=== PATIENT | female | born 1930 | race Two or more races ===

== ENCOUNTER 2018-11-19 21:00 | Inpatient (IN) | payer OTHER ==
[~2018-11-19] VITALS: Ht 152.4 cm; Wt 30.5 kg
--- NOTE | 2018-11-19 19:35 | NUR ---
TRANSFER FROM [facility] ARMIN AGUILA direct admit from [facility]. Patient oriented to DEMARCO LINN, primary RN, unit, room, bed, and unit policies regarding patient care and visiting hours. Patient is alert and oriented x4. Patient noted to have facial droop, slurred speech, and left sided weakness. Received patient with IV 20g to right forearm. Patient denies pain, headache, or shortness of breath at this time. Patient encouraged to call as needed. All questions and concerns addressed, patient verbalized understanding. Bed is locked in lowest position, side rails x 2 are up, call light is within reach, bed alarm is on, and guard is noted at the bedside.
[2018-11-19 20:00] VITALS: BP 159/63
--- NOTE | 2018-11-19 21:00 | NUR ---
SPOKE WITH DR. BOWENS RE: ADMISSION ORDERS Spoke with Dr. Bowens regarding patients status and condition. Admission orders received. Orders read back and verified. Will carry out orders as received.
[2018-11-19] MEDS ORDERED: cloNIDine HCL 0.1 MG TAB PO PRN (21:30)
[2018-11-19] MEDS ORDERED: LABETALOL HCL 5 MG/ML ML 20ML VIAL IV PRN (21:30)
[2018-11-19] MEDS ORDERED: DEXTROSE (50%) 50ML SYRG IV PRN (21:45)
[2018-11-19 22:00] VITALS: BP 159/63
--- NOTE | 2018-11-19 22:27 | NUR ---
RECEIVED CALL FROM LAB RE: CRITICAL LAB VALUE This RN received call from lab and was notified of critical lab value of troponin: 2.340. Will inform
--- NOTE | 2018-11-19 22:55 | NUR ---
DR. KWAN MOSELEY RE: CRITICAL LAB VALUE Dr. Kwan moseley regarding critical lab value.
--- NOTE | 2018-11-19 23:03 | NUR ---
SPOKE WITH DR. BOWENS RE: CRITICAL LAB VALUE Notified Dr. Bowens that patients troponin level is 2.340. Per Dr. Bowens, have this RN inform stna Dr. Shala House.
--- NOTE | 2018-11-19 23:14 | NUR ---
SPOKE WITH DR. Qasim ARAMBULA RE: CRITICAL LAB VALUE Informed Dr. aQsim Arambula of patients critical troponin lab value of 2.340. Updated Dr. Qasim Arambula on patients status and plan of care. New orders for Lovenox 40mg subcutaneous now and scheduled Lovenox 40mg subcutaneous daily received. Will carry out orders as received. Addendum: 11/20/18 at 0113 by DEMARCO LINN RN RN Qasim Arambula aware that patient denies chest pain at this time.
[2018-11-19] MEDS ORDERED: ENOXAPARIN SOD 40 MG/0.4 ML SYRINGE SC ONE (23:15)
--- NOTE | 2018-11-19 23:20 | NUR ---
SPOKE WITH PHARMACY RE: MEDICATION ORDER Spoke with pharmacy regarding Lovenox order. Per pharmacist, Lovenox is a weight based medication and clarification for dosage is needed. Will inform Dr. Shala House.
--- NOTE | 2018-11-19 23:32 | NUR ---
SPOKE WITH DR. Qasim ARAMBULA RE: MEDICATION ORDER Spoke with Dr. Arambula and clarified dosage for Lovenox. New orders received from Dr. Qasim Arambula for Lovenox 35mg subcutaneous now and scheduled Lovenox 35mg subcutaneous daily. Order read back and verified. Will carry out orders as received.
[2018-11-19] MEDS ORDERED: ENOXAPARIN SOD 30 MG/0.3 ML SYRINGE SC ONE (23:45)
[2018-11-19] MEDS: SOD CHL 0.45% 1,000 ML IV SCH (23:57)
[2018-11-20] VITALS (7 sets, daily range): BP systolic 141–160; BP diastolic 43–74
[2018-11-20] MEDS: ACCU-CHEK COMFORT CURVE STRIP VI SCH ×5 (00:02→23:27)
[2018-11-20] MEDS ORDERED: LOSA-39 PO ×2 (00:55)
[2018-11-20] MEDS ORDERED: METF-371 PO (00:55)
[2018-11-20] MEDS ORDERED: ASPI-498 PO (00:55)
[2018-11-20] MEDS ORDERED: HYDR10TA26 PO (00:55)
--- NOTE | 2018-11-20 05:30 | NUR ---
ELEVATED TEMPERATURE Patients temperature was found to be 100.4. Patient denies chills at this time. Cooling measures are in place. Will continue to monitor.
[2018-11-20] MEDS: InsuLIN REG 1unit/0.01ml Soln (100units/ml) SC SCH ×5 (06:00→23:26)
--- NOTE | 2018-11-20 06:20 | NUR ---
REASSESSMENT: TEMPERATURE Patients temperature trending down. Current temperature is 99.4. Patient denies chills at this time. Cooling measures continue to be in place. Patient is laying in bed with even and unlabored respirations. Bed is locked in lowest position, side rails x 2 are up, call light is within reach, bed alarm is on, and guard is noted at the bedside.
--- NOTE | 2018-11-20 07:28 | NUR ---
CLOSING SHIFT NOTE Patient is laying in bed with even and unlabored respirations. No signs/symptoms of distress or shortness of breath noted at this time. Patient care endorsed to Tasia GREENBERG.
--- NOTE | 2018-11-20 08:00 | NUR ---
md chow rounded on pt informed md of new troponin level trending downward
[2018-11-20] MEDS ORDERED: VANCOMYCIN PER PHARMACY 0 MG IV SCH (08:30)
[2018-11-20 08:51] LABS: Albumin 3.4 g/dL (3.4-5.0); Calcium 8.7 mg/dL (8.5-10.1); Potassium 3.9 mmol/L (3.5-5.1)
[2018-11-20 08:54] LABS: BUN/Creatinine Ratio 16.5; Bilirubin, Total 0.9 mg/dL (0.2-1.0); Total Protein 7.5 g/dL (6.4-8.2)
[2018-11-20] MEDS ORDERED: ENOXAPARIN SOD 40 MG/0.4 ML SYRINGE SC SCH (10:00)
[2018-11-20] MEDS ORDERED: VANCOMYCIN 500 MG in D5W 5% 100 ML IV ONE ×4 (10:00)
[2018-11-20] MEDS: PANTOPRAZOLE 40 MG TAB PO SCH (10:35)
[2018-11-20] MEDS: METOPROLOL SUCCINATE XL 50 MG TAB PO SCH (10:35)
[2018-11-20] MEDS: CLOPIDOGREL BISULFATE 75 MG TAB PO SCH (10:36)
[2018-11-20] MEDS: ASPirin 81 mg TAB PO SCH (10:36)
[2018-11-20] MEDS: ENOXAPARIN SOD 30 MG/0.3 ML SYRINGE SC SCH (10:36)
[2018-11-20] MEDS: LOSARTAN POTASSIUM 50 MG TAB PO SCH (10:37)
[2018-11-20] MEDS: hydrALAZINE HCL 25 MG TAB PO SCH ×3 (10:39→21:21)
[2018-11-20] MEDS: SOD CHL 0.45% 1,000 ML IV SCH ×2 (10:40→17:07)
--- NOTE | 2018-11-20 17:16 | NUR ---
SWALLOW EVALUATED. PATIENT ABLE TO TOLERATE PUREE DIET TEXTURE WITH NECTAR THICKENED LIQUIDS WITH NO OVERT SIGNS OR SYMPTOMS OF ASPIRATION. PATIENT COUGHED ON THIN LIQUIDS. PROFOUND WEAKNESS RIGHT SIDE. NURSING NOTIFIED.
--- NOTE | 2018-11-20 19:58 | NUR ---
Dr. Mcgee at patient's bedside. Patient had difficulty speaking. New orders received for NPO including meds and swallow reevaluation from . All orders read back, noted and carried out. Will continue to monitor.
[2018-11-20] MEDS: LABETALOL HCL 5 MG/ML ML 20ML VIAL IV PRN (22:15)
--- NOTE | 2018-11-20 23:36 | NUR ---
Dr. House at the nurses station. Update given. No new orders received at this time. Will continue to monitor.
--- NOTE | 2018-11-21 00:15 | NUR ---
Assisted pt with bedpan. Pt with moderate amount of clear yellow urine with no foul odor. Good perineal care provided. Will continue to monitor.
[2018-11-21] MEDS: SOD CHL 0.45% 1,000 ML IV SCH ×3 (03:50→23:22)
[2018-11-21 05:00] VITALS: BP 160/72
--- NOTE | 2018-11-21 05:09 | NUR ---
Received call from rehabilitation technician, patient with run of Afib at 62 not sustaining and went back to sinus rhythm. Assessed patient, no complaint of chest pain or any discomfort. EKG done placed in chart. Will endorse to am shift nurse to info MD in the am.
[2018-11-21] MEDS: InsuLIN REG 1unit/0.01ml Soln (100units/ml) SC SCH ×4 (06:00→23:21)
[2018-11-21] MEDS: hydrALAZINE HCL 25 MG TAB PO SCH ×3 (06:00→22:12)
[2018-11-21] MEDS: ACCU-CHEK COMFORT CURVE STRIP VI SCH ×4 (06:07→23:22)
[2018-11-21 06:17] LABS: Albumin 3.3 g/dL (3.4-5.0); Calcium 8.3 mg/dL (8.5-10.1)
[2018-11-21 06:20] LABS: BUN/Creatinine Ratio 22.1
[2018-11-21 06:22] LABS: Bilirubin, Total 0.9 mg/dL (0.2-1.0); Total Protein 6.8 g/dL (6.4-8.2)
--- NOTE | 2018-11-21 06:32 | NUR ---
Assisted pt with bedpan. Pt with moderate amount of clear yellow urine with no foul odor. Good perineal care provided. Will continue to monitor.
[2018-11-21 07:58] LABS: Basophils # (auto) 0 uL; Basophils % (auto) 0.6 % (0.0-2.0); Eosinophils # (auto) 0.1 uL; Eosinophils % (auto) 1.2 % (0.0-7.0); Hemoglobin 11.3 g/dL (12.2-16.2); Lymphocytes % (auto) 15.9 % (10.0-50.0); Mean Corpuscular Hemoglobin 31.5 pg (28.0-32.0); Mean Corpuscular Hgb Conc. 32.3 g/dL (32.0-36.0); Mean Corpuscular Volume 97.5 fL (80.0-100.0); Monocytes # (auto) 0.7 uL; Monocytes % (auto) 12.1 % (0.0-12.0); Neutrophils # (auto) 4.3 uL; Neutrophils % (auto) 70.2 % (37.0-80.0); Platelet Count (auto) 274 10^3/uL (140-450); Red Blood Cells 3.59 10^6/uL (4.0-5.20); White Blood Cell 6.1 10^3/uL (4.4-10.8)
--- NOTE | 2018-11-21 08:00 | NUR ---
PT RESTING IN BED, NO DISTRESS NOTED. GUARDS AT BEDSIDE. PT REPOSITIONED TO RIGHT SIDE. PT REPORTS NO PAIN AT THIS TIME. PT ENCOURAGED TO USE CALL LIGHT PRN, WILL CONTINUE TO MONITOR.
--- NOTE | 2018-11-21 08:58 | NUR ---
RECEIVED IN REPORTS DR MILLER WOULD LIKE TO GO FORWARD WITH MELISSA IF ECHO IS READ BY DR ARAMBULA AND IS NORMAL. ECHO NOT READ YET.
[2018-11-21 09:00] VITALS: BP 165/73
--- NOTE | 2018-11-21 09:06 | NUR ---
CALLED MESH MAN TO REQUEST 0.45 NS. MAXIMO REPORTS TO CALL MATERIALS. CALLED MATERIALS, THEY REPORT THEY ARE OUT OF 0.45 NS.
[2018-11-21] MEDS: ASPirin 81 mg TAB PO SCH (09:31)
[2018-11-21] MEDS: CLOPIDOGREL BISULFATE 75 MG TAB PO SCH (09:31)
[2018-11-21] MEDS: LOSARTAN POTASSIUM 50 MG TAB PO SCH (09:31)
[2018-11-21] MEDS: METOPROLOL SUCCINATE XL 50 MG TAB PO SCH (09:32)
[2018-11-21] MEDS: PANTOPRAZOLE 40 MG TAB PO SCH (09:32)
[2018-11-21] MEDS: ENOXAPARIN SOD 30 MG/0.3 ML SYRINGE SC SCH (09:33)
--- NOTE | 2018-11-21 09:38 | NUR ---
Rechecked pt blood pressure, BP 156/57, HR 58.
--- NOTE | 2018-11-21 10:00 | NUR ---
PT REPOSITIONED TO SUPINE.
--- NOTE | 2018-11-21 11:44 | NUR ---
Pt repositioned to left side.
[2018-11-21] MEDS: VANCOMYCIN 500 MG in D5W 5% 100 ML IV SCH (11:47)
--- NOTE | 2018-11-21 12:22 | NUR ---
PT REPORTS IV IS LEAKING. ASSESSED IV SITE, SITE LEAKING, NO ERYTHEMA OR EDEMA NOTED. IV DC'D, PRESSURE DRESSING APPLIED. ATTEMPTED IV INSERTION TWICE USING STERILE TECHNIQUE, UNSUCCESSFUL. CALLED CHARGE, CHARGE REPORTS SHE WILL START IV.
--- NOTE | 2018-11-21 12:31 | NUR ---
CALLED DR ARAMBULA AND LEFT MESSAGE WITH OFFICE REQUESTING CALL BACK, NEED DIFFERENT PRN BP MED AND NEED ECHO READ.
[2018-11-21 13:00] VITALS: BP 152/75
--- NOTE | 2018-11-21 14:22 | NUR ---
PT REPOSITIONED TO RIGHT SIDE.
--- NOTE | 2018-11-21 16:04 | NUR ---
PATIENT CONTINUES TO HAVE DIFFICULTY WITH SWALLOW DUE TO PROFOUND RIGHT SIDE WEAKNESS. MODIFIED DIET TEXTURES TO PUREE WITH HONEY THICKENED LIQUIDS FOR SAFETY. NURSING NOTIFIED.
--- NOTE | 2018-11-21 16:30 | NUR ---
PT REPOSITIONED TO SUPINE.
[2018-11-21 17:00] VITALS: BP 161/75
--- NOTE | 2018-11-21 18:24 | NUR ---
PT HAS ORDER FOR NPO AND PUREED DIET, CALLED AND LEFT MESSAGE FOR DR MILLER TO CLARIFY DIET. INGOT SUPERVISOR REPORTS SHE WILL PAGE
--- NOTE | 2018-11-21 19:02 | NUR ---
DR MILLER CALLED BACK, READ DIETARY REPORT, REPORTS TO PROCEED WITH PUREED DIET WITH CAUTION.
--- NOTE | 2018-11-21 19:45 | NUR ---
Patient assisted to the bed harman. Pt with moderate amount of clear yellow urine with no foul odor. Provided pt with good perineal care. Will continue to monitor.
--- NOTE | 2018-11-21 20:00 | NUR ---
Patient assisted with her meal. Pt able to consume 25% of her dinner tray. Patient able to tolerate pureed and thickened water. Will continue to monitor.
[2018-11-21 22:21] VITALS: BP 169/69
[2018-11-22 05:12] VITALS: BP 140/49
[2018-11-22] MEDS: InsuLIN REG 1unit/0.01ml Soln (100units/ml) SC SCH ×4 (05:47→23:25)
[2018-11-22] MEDS: ACCU-CHEK COMFORT CURVE STRIP VI SCH ×4 (05:47→23:25)
[2018-11-22] MEDS: hydrALAZINE HCL 25 MG TAB PO SCH ×3 (05:48→21:54)
[2018-11-22 06:02] LABS: Basophils # (auto) 0 uL; Basophils % (auto) 0.3 % (0.0-2.0); Eosinophils # (auto) 0.2 uL; Hematocrit 36.2 % (36.0-46.0); Hemoglobin 11.8 g/dL (12.2-16.2); Lymphocytes % (auto) 13.5 % (10.0-50.0); Mean Corpuscular Hemoglobin 31.6 pg (28.0-32.0); Mean Corpuscular Hgb Conc. 32.7 g/dL (32.0-36.0); Mean Corpuscular Volume 96.8 fL (80.0-100.0); Monocytes # (auto) 0.7 uL; Monocytes % (auto) 9.3 % (0.0-12.0); Neutrophils # (auto) 5.8 uL; Neutrophils % (auto) 74.9 % (37.0-80.0); Platelet Count (auto) 296 10^3/uL (140-450); Red Blood Cells 3.74 10^6/uL (4.0-5.20); Red Cell Distribution Width 14.1 % (11.8-14.3); White Blood Cell 7.7 10^3/uL (4.4-10.8)
[2018-11-22 06:22] LABS: Calcium 8.7 mg/dL (8.5-10.1); Potassium 3.9 mmol/L (3.5-5.1)
--- NOTE | 2018-11-22 06:34 | NUR ---
Received call from labs. Pt's Troponin level 0.591. Patient troponin level trending down. MD aware of previous elevated Troponin levels.
--- NOTE | 2018-11-22 07:44 | NUR ---
PATIENT RESTING IN BED, NO DISTRESS NOTED. PT REPORTS NO PAIN AT THIS TIME, GUARDS AT BEDSIDE. PT REPORTS SHE HAS TO VOID. PT ABLE TO TURN HERSELF TO ASSIST WITH BED RAMIREZ. PT VOIDED MODERATE AMOUNT OF CLEAR YELLOW URINE. PT CLEANED AND POSITIONED TO HER LEFT SIDE. PT REPORTS THIS HURTS HER BACK AND PT REPOSITIONED HERSELF TO SUPINE. PT REPORTS SHE WANTS TO GET UP TO A CHAIR TODAY WITH ASSIST, WILL ASK MD.
--- NOTE | 2018-11-22 07:51 | NUR ---
CALLED DR MATA OFFICE, LEFT MESSAGE WITH OYSTER HARVESTER NOTIFYING MD OF TROPONIN LEVEL OF 0.591. OYSTER HARVESTER REPORTS SHE WILL NOTIFY MD TO CALL BACK.
[2018-11-22 09:00] VITALS: BP 157/65
[2018-11-22] MEDS: SOD CHL 0.45% 1,000 ML IV SCH ×2 (09:12→19:30)
[2018-11-22] MEDS: METOPROLOL SUCCINATE XL 50 MG TAB PO SCH (09:12)
[2018-11-22] MEDS: LOSARTAN POTASSIUM 50 MG TAB PO SCH (09:13)
[2018-11-22] MEDS: ASPirin 81 mg TAB PO SCH (09:13)
[2018-11-22] MEDS: PANTOPRAZOLE 40 MG TAB PO SCH (09:14)
[2018-11-22] MEDS ORDERED: VANCOMYCIN 500 MG in D5W 5% 100 ML IV SCH (10:00)
[2018-11-22] MEDS ORDERED: ENOXAPARIN SOD 30 MG/0.3 ML SYRINGE SC SCH (10:00)
--- NOTE | 2018-11-22 10:36 | NUR ---
CRUSHED MEDS AND GAVE IN APPLE SAUCE, PT TOLERATED AND SWALLOWED WELL. BEARING INSPECTOR REPORTS SHE BATHED PATIENT. WILL CONTINUE TO MONITOR.
--- NOTE | 2018-11-22 11:37 | NUR ---
BS 142, INSULIN HELD. DAIRY INSPECTOR REPORTS PATIENT ATE APPROX 10 PERCENT OF HER BREAKFAST. PT ENCOURAGED TO EAT MORE FOR LUNCH, WILL CONTINUE TO MONITOR.
[2018-11-22 13:00] VITALS: BP 162/66
--- NOTE | 2018-11-22 13:25 | NUR ---
RECEIVED COMMUNICATION ORDER TO START ELIQUIS AND DC LOVENOX ONCE ELIQUIS STARTED. CALLED PHARMACY, PHARMACY REPORTS TO PUT IN ELIQUIS FOR A FIB AND TO DC LOVENOX NOW.
--- NOTE | 2018-11-22 13:29 | NUR ---
PT REPORTED THIS MORNING SHE WANTS TO SIT UP IN CHAIR AND SPEAK WITH DR. DR ARAMBULA CAME TO NURSING STATION, NOTIFIED MD [place] FAITH AND MATT ERICKSON PER ORDER. DR ARAMBULA SAW PATIENT AND EXPLAINED SHE IS TO HAVE A MELISSA ON SATURDAY. PT AWARE. NOTIFIED PT WANTS TO GET OUT OF BED AND SIT IN CHAIR. NEW ORDERS FOR PT EVALUATION.
--- NOTE | 2018-11-22 14:03 | NUR ---
SUTURE GAUGER REPORTS BP 162/ 66, 1400 SCHEDULED APRESOLINE GIVEN. Addendum: 11/22/18 at 1404 by MAYRA GUZMAN RN FLUIDS REDUCED TO 10 MLS/HR.
--- NOTE | 2018-11-22 15:46 | NUR ---
LETI REPORTS PT SLAPPING BED RAIL WITH HAND AND TRYING TO GET OUT OF BED. SHE REPORTS PT WANTS PHYSICAL THERAPY TO COME AND GET HER OUT OF BED. SPOKE WITH PHYSICAL THERAPY, PHYSICAL THERAPY REPORTS THEY SAW PATIENT AND DON'T ADVISE HAVING PATIENT SIT IN CHAIR. WILL CONTINUE TO MONITOR. Addendum: 11/22/18 at 1602 by MAYRA GUZMAN RN BED ALARM ON.
[2018-11-22 17:00] VITALS: BP 178/69
[2018-11-22] MEDS: LABETALOL HCL 5 MG/ML ML 20ML VIAL IV PRN (18:38)
--- NOTE | 2018-11-22 20:00 | NUR ---
Patient in bed alert and oriented. Pt's respiration even and unlabored. Patient upset regarding PT recommendation/ advise. Per patient, she wanted to walk around and not just stay on the bed the whole time. Encouraged patient to reposition self in bed frequently. Guard at bedside. Will continue to monitor.
--- NOTE | 2018-11-22 20:32 | NUR ---
Attended to patient's call light. Pt is asking why her medicines are stuck on the siderails. Reoriented patient that the icons are not medicines but to control the bed. Will continue to monitor.
[2018-11-22 21:31] VITALS: BP 162/64
[2018-11-22] MEDS: APIXABAN 2.5 MG TAB PO SCH (21:54)
--- NOTE | 2018-11-23 00:45 | NUR ---
ASSUMED CARE OF PATIENT AFTER REPORT GIVEN. PATIENT IS RESTING IN BED WITH BREATH EVEN AND UNLABORED. GUARDS AT THE BEDSIDE.
[2018-11-23] MEDS: SOD CHL 0.45% 1,000 ML IV SCH ×2 (05:17→16:00)
[2018-11-23 05:21] VITALS: BP 148/62
[2018-11-23] MEDS: ACCU-CHEK COMFORT CURVE STRIP VI SCH ×3 (05:46→17:39)
[2018-11-23] MEDS: hydrALAZINE HCL 25 MG TAB PO SCH ×3 (05:46→21:37)
[2018-11-23] MEDS: InsuLIN REG 1unit/0.01ml Soln (100units/ml) SC SCH ×3 (05:55→17:39)
--- NOTE | 2018-11-23 08:00 | NUR ---
Opening Shift Note Assumed care of patient, awake and alert. No S/S of distress/SOB or pain. With left sided weakness. Patient has 2 jail guards at the bedside. Instructed on POC and to call for assist PRN, will continue to monitor for changes Q1hr and PRN.
[2018-11-23 09:00] VITALS: BP 160/73
[2018-11-23] MEDS: ASPirin 81 mg TAB PO SCH (10:15)
[2018-11-23] MEDS: METOPROLOL SUCCINATE XL 50 MG TAB PO SCH (10:16)
[2018-11-23] MEDS: LOSARTAN POTASSIUM 50 MG TAB PO SCH (10:16)
[2018-11-23] MEDS: APIXABAN 2.5 MG TAB PO SCH ×2 (10:16→21:38)
[2018-11-23] MEDS: PANTOPRAZOLE 40 MG TAB PO SCH (10:16)
--- NOTE | 2018-11-23 12:15 | NUR ---
IV removal IV in right antecubital infiltrated. IV DC'd with clean sterile technique, catheter fully intact. Pressure dressing applied to site. Patient tolerated well.
--- NOTE | 2018-11-23 12:30 | NUR ---
IV insertion IV access obtained, via clean sterile technique by inserting 20 gauge catheter at right forearm after one attempt. IV secured properly. No trauma to site. Patient tolerated well.
[2018-11-23] MEDS: VANCOMYCIN 500 MG in D5W 5% 100 ML IV SCH (12:35)
[2018-11-23 13:00] VITALS: BP 141/58
--- NOTE | 2018-11-23 13:45 | NUR ---
Qasim Rios at the bedside, patient is advised. Orders received. Patient is for MELISSA on Saturday.
[2018-11-23 17:00] VITALS: BP 164/77
[2018-11-23] MEDS: LABETALOL HCL 5 MG/ML ML 20ML VIAL IV PRN (17:53)
--- NOTE | 2018-11-23 19:30 | NUR ---
Opening Shift Note Assumed care of patient. patient laying in bed awake and alert. No S/S of distress/SOB noted and denies pain. Patient has 2 fpc guards at the bedside. Bed locked and in the lowest position with side rails up x2. Call light left within reach. Instructed on POC and to call for assist PRN, will continue to monitor for changes Q1hr and PRN.
[2018-11-23] MEDS: amLODIPine BESYLATE 5 MG TAB PO SCH (21:38)
[2018-11-23 21:46] VITALS: BP 151/55
[2018-11-24] MEDS: ACCU-CHEK COMFORT CURVE STRIP VI SCH ×4 (01:16→17:41)
[2018-11-24] MEDS: SOD CHL 0.45% 1,000 ML IV SCH ×3 (01:30→22:16)
[2018-11-24] MEDS: hydrALAZINE HCL 25 MG TAB PO SCH ×3 (05:13→22:00)
[2018-11-24 05:21] VITALS: BP 160/65
[2018-11-24] MEDS: InsuLIN REG 1unit/0.01ml Soln (100units/ml) SC SCH ×4 (05:25→17:42)
--- NOTE | 2018-11-24 07:45 | NUR ---
Opening Shift Note Assumed care of patient. Patient laying in bed awake and alert. No S/S of distress/SOB noted and denies pain. Patient has 2 skilled nursing guards at the bedside. Bed locked and in the lowest position with side rails up x2. Call light left within reach. Instructed on POC and to call for assist PRN, will continue to monitor for changes Q1hr and PRN.
[2018-11-24 08:00] VITALS: BP 189/71
--- NOTE | 2018-11-24 08:51 | NUR ---
Blood pressure 189/79 PRN B/P medication (SEE EMAR)
--- NOTE | 2018-11-24 09:51 | NUR ---
Blood Pressure reassessed 114/42 and heart rate 52.
[2018-11-24] MEDS: amLODIPine BESYLATE 5 MG TAB PO SCH ×2 (10:00→22:00)
[2018-11-24] MEDS: METOPROLOL SUCCINATE XL 50 MG TAB PO SCH (10:00)
[2018-11-24] MEDS: LOSARTAN POTASSIUM 50 MG TAB PO SCH (10:00)
[2018-11-24] MEDS: PANTOPRAZOLE 40 MG TAB PO SCH (10:00)
[2018-11-24] MEDS: APIXABAN 2.5 MG TAB PO SCH ×2 (10:16→22:13)
[2018-11-24] MEDS: ASPirin 81 mg TAB PO SCH (10:16)
--- NOTE | 2018-11-24 11:40 | NUR ---
Nutrition Assessment Notes please see attached link for complete assessment Est. Needs based on IBW 45 [id number] kcal (25-30 kcal/kg), 45-54 g protein (1.0-1.2 g/kg) Addendum: 11/24/18 at [address] Amended: Links added.
[2018-11-24 14:00] VITALS: BP 120/60
[2018-11-24 17:00] VITALS: BP 131/82
--- NOTE | 2018-11-24 19:05 | NUR ---
OPENING NOTE- NOC SHIFT PATIENT IS IN BED. PATIENT IS ALERT X4 AT THIS TIME. PATIENT COMPLAINS OF PAIN TO BACK AND REQUEST PILLOWS TO BE PLACED COMPLETELY ON HER BACK. INSTRUCTED PATIENT TO CALL PRN, PATIENT VERBALIZED UNDERSTANDING. PATIENT IS AN INMATE, TWO GUARDS AT BEDSIDE. PATIENT DOES IS NOT CUFFED AND IS NOT RESTRAINED. WILL CONTINUE TO MONITOR Q1H AND PRN.
[2018-11-24 21:00] VITALS: BP 129/58
[2018-11-25] MEDS: ACCU-CHEK COMFORT CURVE STRIP VI SCH ×5 (00:09→23:50)
[2018-11-25 04:30] VITALS: BP 147/62
[2018-11-25] MEDS: InsuLIN REG 1unit/0.01ml Soln (100units/ml) SC SCH ×5 (06:00→23:50)
[2018-11-25] MEDS: hydrALAZINE HCL 25 MG TAB PO SCH ×3 (06:07→22:00)
--- NOTE | 2018-11-25 07:17 | NUR ---
RACE CAR DRIVER CALL REQUESTING PATIENT TO BE BROUGHT DOWN FOR PROCEDURE.
[2018-11-25] MEDS: SOD CHL 0.45% 1,000 ML IV SCH ×3 (07:30→23:54)
--- NOTE | 2018-11-25 08:00 | NUR ---
Opening Note Report received Pt.off unit,in Air Brakes Inspector for MELISSA
[2018-11-25 08:13] LABS: INR 1.02 (0.9-1.15); Partial Thromboplastin Time 30.3 sec (23.64-32.05)
[2018-11-25] MEDS ORDERED: MIDAZOLAM HCL 1MG/1ML-2 ML VIAL ONE (08:30)
[2018-11-25] MEDS ORDERED: LIDOCAINE VISCOUS 2% 15ML UD ONE (08:30)
[2018-11-25] MEDS ORDERED: fentaNYL CITRATE 100 MCG/2 ML VL ONE (08:30)
--- NOTE | 2018-11-25 09:45 | NUR ---
RECEIVED FROM MELISSA PROCEDURE,AWAKE NO DISTRESS NO DISCOMFORT.
[2018-11-25] MEDS: PANTOPRAZOLE 40 MG TAB PO SCH (10:58)
[2018-11-25] MEDS: ASPirin 81 mg TAB PO SCH (10:58)
[2018-11-25] MEDS: METOPROLOL SUCCINATE XL 50 MG TAB PO SCH (11:00)
[2018-11-25] MEDS: APIXABAN 2.5 MG TAB PO SCH ×2 (11:00→22:20)
[2018-11-25] MEDS: LOSARTAN POTASSIUM 50 MG TAB PO SCH (11:00)
--- NOTE | 2018-11-25 11:00 | NUR ---
A.M. MEDICATION GIVEN,ABLE TO SWALLOW PILL WITH APPLE SAUCE AND THIN LIQUIDS ABLE TO TOLERATE,NO SIGNS OF CHOCKING OR ASPIRATING.
[2018-11-25] MEDS: amLODIPine BESYLATE 5 MG TAB PO SCH ×2 (11:01→22:00)
--- NOTE | 2018-11-25 12:15 | NUR ---
OOB UP IN CHAIR ASSISTED BY Lucinda
[2018-11-25 17:00] VITALS: BP 134/57
--- NOTE | 2018-11-25 19:05 | NUR ---
OPENING SHIFT NOTE- NOC PATIENT IS SITTING UP IN BED, HEAD OF BED IS UP >30 DEGREES FOR SAFETY PRECAUTIONS. NO S/SX OF DISTRESS, SOB OR PAIN. PATIENT STATES THAT SHE IS MISSING HER EYE GLASSES AND STATES THAT SHE DID NOT COME BACK WITH THEM FROM PODIATRY DOCTOR THIS MORNING. PATIENT STATES THAT SHE MADE HER NURSE AWARE. GUARD IS AT BEDSIDE; PATIENT IS AN INMATE. PATIENT IS NOT RESTRAINED. PATIENT APPEARS TO BE CALM AND RELAXED. WILL CONTINUE TO MONITOR Q1H AND PRN.
--- NOTE | 2018-11-25 19:06 | NUR ---
Resting no distress no discomfort,report given to Ninoska MUÑOZ RN
[2018-11-25 22:00] VITALS: BP 122/46
[2018-11-26 05:00] VITALS: BP 163/71
[2018-11-26] MEDS: hydrALAZINE HCL 25 MG TAB PO SCH ×3 (05:48→21:40)
[2018-11-26] MEDS: InsuLIN REG 1unit/0.01ml Soln (100units/ml) SC SCH ×3 (05:49→18:00)
[2018-11-26] MEDS: ACCU-CHEK COMFORT CURVE STRIP VI SCH ×3 (05:49→18:04)
--- NOTE | 2018-11-26 07:30 | NUR ---
Opening Shift Note Assumed care of patient, awake, alert, and oriented x4. No S/S of distress/SOB or pain. IV is in the right forearm 20 gauge and is asymptomatic, intact, patent, and saline locked. Patient has been repositioned for comfort. Bed is locked and in lowest position and call light is within reach. Instructed on POC and to call for assist PRN, and patient verbalized understanding. Will continue to monitor for changes Q1hr and PRN.
[2018-11-26 08:39] VITALS: BP 154/57
--- NOTE | 2018-11-26 09:30 | NUR ---
Physical therapy at bedside, patient transferred to chair with moderate assistance.
--- NOTE | 2018-11-26 09:45 | NUR ---
Patient eating breakfast in chair; no distress noted at this time.
[2018-11-26] MEDS: PANTOPRAZOLE 40 MG TAB PO SCH (10:54)
[2018-11-26] MEDS: APIXABAN 2.5 MG TAB PO SCH ×2 (10:54→21:40)
[2018-11-26] MEDS: METOPROLOL SUCCINATE XL 50 MG TAB PO SCH (10:54)
[2018-11-26] MEDS: ASPirin 81 mg TAB PO SCH (10:54)
[2018-11-26] MEDS: amLODIPine BESYLATE 5 MG TAB PO SCH ×2 (10:55→21:41)
[2018-11-26] MEDS: LOSARTAN POTASSIUM 50 MG TAB PO SCH (10:56)
[2018-11-26 11:51] VITALS: BP 157/61
[2018-11-26] MEDS: SOD CHL 0.45% 1,000 ML IV SCH ×2 (13:30→22:56)
[2018-11-26 16:32] VITALS: BP 158/67
--- NOTE | 2018-11-26 19:30 | NUR ---
Opening Shift Note Assumed care of patient, awake and alert x4. Guard noted at the bedside. Patient denies pain at this time. No S/S of distress noted at this time. Instructed on plan of care and to call for assistance as needed, patient verbalized understanding. Bed is locked in lowest position, side rails x 2 are up, call light is within reach, and bed alarm is on.
[2018-11-26 22:00] VITALS: BP 148/59
--- NOTE | 2018-11-26 22:10 | NUR ---
IV INSERTION IV access obtained, via clean sterile technique by inserting 22 gauge catheter at right forearm after 1 attempt. IV secured properly. IV flushing well with no resistance, patient denies pain to the site. Educated patient to call if IV site becomes tender or painful. Patient tolerated well. IV REMOVAL IV to right forearm DC'd with clean sterile technique, catheter fully intact. Pressure dressing applied to site. Patient tolerated well.
[2018-11-27] MEDS: ACCU-CHEK COMFORT CURVE STRIP VI SCH ×4 (00:09→17:34)
[2018-11-27] MEDS: LABETALOL HCL 5 MG/ML ML 20ML VIAL IV PRN (04:31)
[2018-11-27 05:00] VITALS: BP 164/67
[2018-11-27] MEDS: InsuLIN REG 1unit/0.01ml Soln (100units/ml) SC SCH ×4 (06:00→17:34)
[2018-11-27] MEDS: hydrALAZINE HCL 25 MG TAB PO SCH ×3 (06:38→21:51)
--- NOTE | 2018-11-27 07:30 | NUR ---
Opening Shift Note Assumed care of patient, awake and alert. No S/S of distress/SOB or pain. Instructed on POC and to call for assist PRN, will continue to monitor for changes Q1hr and PRN. Patient is an inmate, guard is at bedside.
--- NOTE | 2018-11-27 08:30 | NUR ---
Patient assisted to BSC with max assist. Left side weakness noted. Will continue to monitor.
[2018-11-27 09:00] VITALS: BP 143/63
[2018-11-27] MEDS: SOD CHL 0.45% 1,000 ML IV SCH ×2 (09:30→19:30)
[2018-11-27] MEDS: LOSARTAN POTASSIUM 50 MG TAB PO SCH (09:48)
[2018-11-27] MEDS: PANTOPRAZOLE 40 MG TAB PO SCH (09:48)
[2018-11-27] MEDS: amLODIPine BESYLATE 5 MG TAB PO SCH ×2 (09:48→21:49)
[2018-11-27] MEDS: METOPROLOL SUCCINATE XL 50 MG TAB PO SCH (09:48)
[2018-11-27] MEDS: ASPirin 81 mg TAB PO SCH (09:49)
[2018-11-27] MEDS: APIXABAN 2.5 MG TAB PO SCH ×2 (09:49→21:50)
[2018-11-27 13:00] VITALS: BP 148/62
--- NOTE | 2018-11-27 14:28 | NUR ---
Nutrition Follow-up Notes Wt.: 32.7 kg s of yesterday. Pt's s/p MELISSA (11/25/18), with deputies at bedside, denies any discomfort during rounds this morning. 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 Pt's currently on Pureed Consistent Carb diet with Glucerna Shakes 1 carton BID, has improved PO intake aeb 100% consumed meal on today's breakfast. Encouraged to continue her adequate food intake through small frequent meals as tolerated. Provide verbal nutrition educ. re: current therapeutic diet and she verbalized understanding Est. Needs based on IBW 45 [id number] kcal (25-30 kcal/kg), 45-54 g protein (1.0-1.2 g/kg) Labs: No other labs since 11/22/18 except for today's POC Gluc 176 H Skin: Lyle scale 16, mod risk, skin intact per documentation analyst. GI: Pt's no bowel activity since 11/19/18 per documentation analyst. PES: Increased nutrient needs r/t current/chronic medical/nutritional status aeb 72% IBW, BMI 14.1 kg/m2, cachectic, reported wt loss, on ONS. Altered nutrition related lab values r/t current/chronic medical condition aeb elev BUN mild hypoalb hyperglycemia Will continue to monitor PO intake, skin status, pertinent labs and weight trend. F/u in 3 to 5 days. Rec.: 1.) Continue close supervision during meals. 2.) Consider to continue other pertinent labs prn; If Albumin continues trending down, consider Prostat 1 pkt BID. 3.) Refer pt to CDE/RD for further nutrition education and weight monitoring upon discharge. 4.) Continue current plan of care.
[2018-11-27 17:18] VITALS: BP 159/61
[2018-11-27] MEDS: Glucerna Carbsteady SHAKE Stawberry 8oz PO SCH (17:34)
[2018-11-27] MEDS ORDERED: ISOS20TA56 PO (20:27)
[2018-11-27] MEDS ORDERED: OXYB5SYP4 PO (20:29)
[2018-11-27] MEDS ORDERED: METF500S PO (20:29)
[2018-11-27] MEDS ORDERED: CALC-337 OR (20:30)
--- NOTE | 2018-11-27 20:30 | NUR ---
ASSISTED X2 PATIENT TO [facility] MAX ASSIST PATIENT HAS LEFT SIDED WEAKNESS FROM ACUTE STROKE.
[2018-11-27 22:00] VITALS: BP 145/51
[2018-11-28 05:00] VITALS: BP 120/42
[2018-11-28] MEDS: SOD CHL 0.45% 1,000 ML IV SCH ×2 (05:30→17:54)
--- NOTE | 2018-11-28 05:45 | NUR ---
PATIENT TRANSFER MAX ASSIST X2 TO C. PATIENT HAS LEFT SIDED WEAKNESS. LETI VAZQUEZ STATES SHE IS MORE WEAK TODAY THAN YESTERDAY. ASSISTED PATIENT BACK TO BED.
[2018-11-28] MEDS: hydrALAZINE HCL 25 MG TAB PO SCH ×3 (06:01→21:39)
[2018-11-28] MEDS: InsuLIN REG 1unit/0.01ml Soln (100units/ml) SC SCH ×4 (06:01→18:12)
[2018-11-28] MEDS: ACCU-CHEK COMFORT CURVE STRIP VI SCH ×4 (06:01→18:12)
[2018-11-28 08:00] VITALS: BP 144/58
[2018-11-28 09:00] VITALS: BP 144/58
[2018-11-28] MEDS: APIXABAN 2.5 MG TAB PO SCH ×2 (09:11→21:40)
[2018-11-28] MEDS: ASPirin 81 mg TAB PO SCH (09:11)
[2018-11-28] MEDS: PANTOPRAZOLE 40 MG TAB PO SCH (09:11)
[2018-11-28] MEDS: LOSARTAN POTASSIUM 50 MG TAB PO SCH (09:11)
[2018-11-28] MEDS: METOPROLOL SUCCINATE XL 50 MG TAB PO SCH (09:12)
[2018-11-28] MEDS: amLODIPine BESYLATE 5 MG TAB PO SCH ×2 (09:12→21:41)
[2018-11-28 13:00] VITALS: BP 155/77
--- NOTE | 2018-11-28 16:30 | NUR ---
Assumed care Assumed care of this patient. Received report from previous nurse, Elvia. Patient is resting with her eyes closed at this time. No sign of distress or discomfort.
[2018-11-28 17:00] VITALS: BP 153/62
[2018-11-28] MEDS: Glucerna Carbsteady SHAKE Stawberry 8oz PO SCH ×2 (18:11→18:12)
[2018-11-28 22:00] VITALS: BP 143/54
[2018-11-29] MEDS: SOD CHL 0.45% 1,000 ML IV SCH ×2 (00:17→01:30)
[2018-11-29 05:00] VITALS: BP 158/71
[2018-11-29] MEDS: hydrALAZINE HCL 25 MG TAB PO SCH ×3 (05:54→22:27)
[2018-11-29] MEDS: ACCU-CHEK COMFORT CURVE STRIP VI SCH ×3 (05:54→12:00)
[2018-11-29] MEDS: InsuLIN REG 1unit/0.01ml Soln (100units/ml) SC SCH ×3 (05:54→12:00)
--- NOTE | 2018-11-29 07:30 | NUR ---
Opening Shift Note Assumed care of patient, awake and alert. No S/S of distress/SOB or pain. Instructed on POC and to call for assist PRN, will continue to monitor for changes Q1hr and PRN. Patient is an inmate, guard X 1 at bedside.
[2018-11-29] MEDS: Glucerna Carbsteady SHAKE Stawberry 8oz PO SCH ×2 (08:00→18:00)
[2018-11-29 09:00] VITALS: BP_SYST 143; BP_SYST 157; BP_DIAS 59; BP_DIAS 66
[2018-11-29] MEDS: APIXABAN 2.5 MG TAB PO SCH ×2 (09:51→22:27)
[2018-11-29] MEDS: ASPirin 81 mg TAB PO SCH (09:51)
[2018-11-29] MEDS: PANTOPRAZOLE 40 MG TAB PO SCH (09:51)
[2018-11-29] MEDS: amLODIPine BESYLATE 5 MG TAB PO SCH ×2 (09:52→22:27)
[2018-11-29] MEDS: METOPROLOL SUCCINATE XL 50 MG TAB PO SCH (09:52)
[2018-11-29] MEDS: LOSARTAN POTASSIUM 50 MG TAB PO SCH (09:52)
[2018-11-29 13:00] VITALS: BP 143/59
[2018-11-29 17:00] VITALS: BP_SYST 123; BP_SYST 145; BP_DIAS 54
--- NOTE | 2018-11-29 19:20 | NUR ---
Patient informed me that her glasses were not returned to her when she returned from the director of cardiac cath lab. Informed patient that we will look for them on Saturday morning when the director of cardiac cath lab is opened. Will endorse this to [facility] RN.
[2018-11-29 21:11] VITALS: BP 117/45
--- NOTE | 2018-11-29 22:57 | NUR ---
Opening Shift Note Assumed care of patient, awake and alert. No S/S of distress/SOB or pain. Safety measures in place bed in lowest position, side rails x2, and call light within reach. Instructed on POC and to call for assist PRN, will continue to monitor for changes Q1hr and PRN.
--- NOTE | 2018-11-30 00:10 | NUR ---
IV removal IV DC'd with sterile technique, catheter fully intact. Pressure dressing applied to site. Patient tolerated procedure well.
--- NOTE | 2018-11-30 00:15 | NUR ---
IV insertion IV access obtained, via clean sterile technique by inserting 20 gauge catheter at Right forearm after 1 attempt. IV secured properly. No trauma to site. Patient tolerated procedure well.
[2018-11-30] MEDS: InsuLIN REG 1unit/0.01ml Soln (100units/ml) SC SCH ×5 (00:17→23:58)
[2018-11-30] MEDS: ACCU-CHEK COMFORT CURVE STRIP VI SCH ×5 (00:17→23:58)
[2018-11-30 04:03] VITALS: BP 138/61
[2018-11-30] MEDS: hydrALAZINE HCL 25 MG TAB PO SCH ×3 (06:15→21:51)
[2018-11-30] MEDS: SOD CHL 0.45% 1,000 ML IV SCH (07:30)
--- NOTE | 2018-11-30 07:30 | NUR ---
Opening Shift Note Assumed care of patient, awake and alert. No S/S of distress/SOB or pain. Instructed on POC and to call for assist PRN, will continue to monitor for changes Q1hr and PRN. Guard X 1 at bedside as patient is an inmate.
[2018-11-30] MEDS: Glucerna Carbsteady SHAKE Stawberry 8oz PO SCH ×2 (08:00→18:11)
[2018-11-30 09:00] VITALS: BP 121/46
[2018-11-30] MEDS: PANTOPRAZOLE 40 MG TAB PO SCH (10:09)
[2018-11-30] MEDS: METOPROLOL SUCCINATE XL 50 MG TAB PO SCH (10:10)
[2018-11-30] MEDS: ASPirin 81 mg TAB PO SCH (10:10)
[2018-11-30] MEDS: APIXABAN 2.5 MG TAB PO SCH ×2 (10:10→21:36)
[2018-11-30] MEDS: amLODIPine BESYLATE 5 MG TAB PO SCH ×2 (10:10→21:37)
[2018-11-30] MEDS: LOSARTAN POTASSIUM 50 MG TAB PO SCH (10:11)
--- NOTE | 2018-11-30 11:37 | NUR ---
Nutrition Follow-up Notes Wt.: 87.7 kg Pt's sleeping with deputies at bedside. pt with no distress noted. Pt's currently on Pureed Consistent Carb diet with Glucerna Shakes 1 carton BID, with inadequate PO of < 50% x 5 per RN doc Est. Needs based on IBW 45 [id number] kcal (25-30 kcal/kg), 45-54 g protein (1.0-1.2 g/kg) Labs: No other labs since 11/22/18 except for today's POC Gluc 132 H Skin: Lyle scale 16, mod risk, skin intact per grain receiver. GI: Pt's no bowel activity since 11/26/18 per grain receiver. PES: Increased nutrient needs r/t current/chronic medical/nutritional status aeb 72% IBW, BMI 14.1 kg/m2, cachectic, reported wt loss, on ONS. Altered nutrition related lab values r/t current/chronic medical condition aeb elev BUN mild hypoalb hyperglycemia Will continue to monitor PO intake, skin status, pertinent labs and weight trend. F/u in 3 to 5 days. Rec.: 1.) Continue close supervision during meals. 2.) Consider to continue other pertinent labs prn; If Albumin continues trending down, consider Prostat 1 pkt BID. 3.) Refer pt to CDE/RD for further nutrition education and weight monitoring upon discharge. 4.) Continue current plan of care.
[2018-11-30 12:47] VITALS: BP 125/55
[2018-11-30 17:07] VITALS: BP 130/56
--- NOTE | 2018-11-30 19:00 | NUR ---
Opening Shift Note Assumed care of patient, awake and alert. No S/S of distress/SOB or pain. Safety measures in place bed in lowest position, side rails x2 up, and call light within reach. Instructed on POC and to call for assist PRN, will continue to monitor for changes Q1hr and PRN.
[2018-11-30 21:50] VITALS: BP 116/52
--- NOTE | 2018-11-30 21:52 | NUR ---
Held Medication Patient's Hydralazine held due to BP of 116/52. Will continue to monitor.
[2018-12-01] MEDS: SOD CHL 0.45% 1,000 ML IV SCH ×3 (03:11→23:30)
[2018-12-01 05:16] VITALS: BP 154/62
[2018-12-01] MEDS: ACCU-CHEK COMFORT CURVE STRIP VI SCH ×4 (05:34→23:42)
[2018-12-01] MEDS: hydrALAZINE HCL 25 MG TAB PO SCH ×3 (05:34→21:26)
[2018-12-01] MEDS: InsuLIN REG 1unit/0.01ml Soln (100units/ml) SC SCH ×4 (06:02→23:41)
--- NOTE | 2018-12-01 07:15 | NUR ---
Opening Shift Note Assumed care of patient, awake,alert and oriented, No S/S of distress/SOB or pain. Instructed on POC and to call for assistance as needed ,will continue to monitor for changes Q1hr and PRN.patient assisted by BONDACTOR MACHINE OPERATOR to get oob,up in chair for breakfast.Federal guard at bedside.
--- NOTE | 2018-12-01 08:05 | NUR ---
Called boat laborer re missing Eye Glasses when patient went down for MELISSA last 11/25, Margin Trimmer staff stated no glasses found.
[2018-12-01] MEDS: Glucerna Carbsteady SHAKE Stawberry 8oz PO SCH ×2 (08:56→17:57)
[2018-12-01 09:00] VITALS: BP 134/59
--- NOTE | 2018-12-01 10:10 | NUR ---
OOB AMBULATED WITH PHYSICAL THERAPY USING CANE,AMBULATED 100 FEET PER TRAIN GATEMAN,BACK TO CHAIR,RANGE OF MOTION DONE,TOLERATED ACTIVITY.
[2018-12-01] MEDS: APIXABAN 2.5 MG TAB PO SCH ×2 (10:30→21:15)
[2018-12-01] MEDS: PANTOPRAZOLE 40 MG TAB PO SCH (10:30)
[2018-12-01] MEDS: LOSARTAN POTASSIUM 50 MG TAB PO SCH (10:30)
[2018-12-01] MEDS: amLODIPine BESYLATE 5 MG TAB PO SCH ×2 (10:31→21:16)
[2018-12-01] MEDS: METOPROLOL SUCCINATE XL 50 MG TAB PO SCH (10:31)
[2018-12-01] MEDS: ASPirin 81 mg TAB PO SCH (10:31)
[2018-12-01 13:00] VITALS: BP 137/62
--- NOTE | 2018-12-01 14:00 | NUR ---
PATIENT TIRED FROM SITTING,ASSISTED BACK TO BED BY ELECTRIC SHAVER MECHANIC
--- NOTE | 2018-12-01 16:30 | NUR ---
DR. STEWART HERE TO SEE AND EXAMINED PATIENT
[2018-12-01 17:00] VITALS: BP 138/58
--- NOTE | 2018-12-01 19:06 | NUR ---
STATUS UNCHANGED NO DISTRESS, NO DISCOMFORT.REPORT GIVEN TO INCOMING NOC SHIFT R.N.
--- NOTE | 2018-12-01 19:35 | NUR ---
Opening Shift Note Assumed care of patient, awake and alert. No S/S of distress/SOB or pain. jail guard at bedside. Noted left side hemiparesis and slurred speech. Can use bedside commode with moderate assist. Instructed on POC and to call for assist PRN, patient verbalized understanding, call light within reach, bed alarm on, will continue to monitor for changes Q1hr and PRN.
[2018-12-01 21:54] VITALS: BP 125/40
[2018-12-02 05:00] VITALS: BP 147/60
[2018-12-02] MEDS: InsuLIN REG 1unit/0.01ml Soln (100units/ml) SC SCH ×3 (06:00→18:00)
[2018-12-02] MEDS: ACCU-CHEK COMFORT CURVE STRIP VI SCH ×3 (06:05→18:01)
[2018-12-02] MEDS: hydrALAZINE HCL 25 MG TAB PO SCH ×3 (06:05→21:15)
--- NOTE | 2018-12-02 07:15 | NUR ---
Opening Shift Note Assumed care of patient, awake,alert and oriented, No S/S of distress/SOB or pain. Instructed on POC and to call for assistance as needed ,will continue to monitor for changes Q1hr and PRN.patient assisted to get oob,up in chair for breakfast.Federal guard at bedside.
[2018-12-02] MEDS: Glucerna Carbsteady SHAKE Stawberry 8oz PO SCH ×2 (08:00→18:02)
[2018-12-02 09:00] VITALS: BP 142/59
[2018-12-02] MEDS: SOD CHL 0.45% 1,000 ML IV SCH (09:30)
--- NOTE | 2018-12-02 09:40 | NUR ---
PHYSICAL THERAPY AT BEDSIDE AMBULATED PATIENT IN HALLWAY WITH WALKER BACK TO ROOM TOLERATED ACTIVITY,ROM DONE AT BEDSIDE.
[2018-12-02] MEDS: APIXABAN 2.5 MG TAB PO SCH ×2 (09:42→21:17)
[2018-12-02] MEDS: PANTOPRAZOLE 40 MG TAB PO SCH (09:43)
[2018-12-02] MEDS: LOSARTAN POTASSIUM 50 MG TAB PO SCH (09:44)
[2018-12-02] MEDS: METOPROLOL SUCCINATE XL 50 MG TAB PO SCH (09:45)
[2018-12-02] MEDS: ASPirin 81 mg TAB PO SCH (09:46)
[2018-12-02] MEDS: amLODIPine BESYLATE 5 MG TAB PO SCH ×2 (09:47→21:17)
--- NOTE | 2018-12-02 12:30 | NUR ---
MD VISIT DR. STEWART HERE TO SEE AND EXAMINED PATIENT RECEIVED ORDERS
[2018-12-02 13:00] VITALS: BP 114/61
--- NOTE | 2018-12-02 13:20 | NUR ---
TELEMETRY DISCONTINUED,RETURNED TO ICU FIELD ACCOUNT MANAGER
[2018-12-02 17:00] VITALS: BP 110/49
[2018-12-02 22:00] VITALS: BP 128/54
[2018-12-03] MEDS: ACCU-CHEK COMFORT CURVE STRIP VI SCH ×4 (00:28→17:51)
[2018-12-03] MEDS: InsuLIN REG 1unit/0.01ml Soln (100units/ml) SC SCH ×4 (00:29→17:51)
[2018-12-03] MEDS: hydrALAZINE HCL 25 MG TAB PO SCH ×3 (05:30→22:18)
[2018-12-03 05:44] VITALS: BP 132/48
[2018-12-03 06:47] LABS: Basophils # (auto) 0 uL; Basophils % (auto) 0.7 % (0.0-2.0); Eosinophils # (auto) 0.3 uL; Eosinophils % (auto) 4.7 % (0.0-7.0); Hematocrit 35.2 % (36.0-46.0); Hemoglobin 11.4 g/dL (12.2-16.2); Lymphocytes # (auto) 1.1 uL; Lymphocytes % (auto) 19.5 % (10.0-50.0); Mean Corpuscular Hemoglobin 31.8 pg (28.0-32.0); Mean Corpuscular Hgb Conc. 32.6 g/dL (32.0-36.0); Mean Corpuscular Volume 97.5 fL (80.0-100.0); Monocytes # (auto) 0.5 uL; Neutrophils # (auto) 3.7 uL; Neutrophils % (auto) 66.1 % (37.0-80.0); Nucleated Red Blood Cells % 0.2 %; Platelet Count (auto) 264 10^3/uL (140-450); Red Cell Distribution Width 14.4 % (11.8-14.3); White Blood Cell 5.5 10^3/uL (4.4-10.8)
[2018-12-03 07:03] LABS: Potassium 4.1 mmol/L (3.5-5.1)
[2018-12-03 07:10] LABS: Albumin 3.3 g/dL (3.4-5.0); BUN/Creatinine Ratio 19.8; Bilirubin, Total 0.4 mg/dL (0.2-1.0); Calcium 9.2 mg/dL (8.5-10.1); Total Protein 7.2 g/dL (6.4-8.2)
--- NOTE | 2018-12-03 07:30 | NUR ---
OPENING SHIFT NOTE PATIENT RESTING IN CHAIR. RESPIRATIONS EVEN AND UNLABORED. NO S/S OF DISTRESS NOTED AT THIS TIME. PATIENT HAS DROOPY LEFT SIDE FACE AND WEAK L UPPER EXTREMITY. PATIENT UPDATED ON POC. ALL QUESTIONS ANSWERED. BED IN LOWEST LOCKED POSITION WITH CALL LIGHT WITHIN REACH. FALL PRECAUTIONS IN PLACE PER PROTOCOL. WILL CONTINUE CARE.
[2018-12-03] MEDS: Glucerna Carbsteady SHAKE Stawberry 8oz PO SCH ×2 (08:00→19:27)
[2018-12-03 09:00] VITALS: BP 152/67
--- NOTE | 2018-12-03 09:45 | NUR ---
Briana MCLAUGHLIN AT BEDSIDE.
--- NOTE | 2018-12-03 10:27 | NUR ---
PHYSICAL THERAPY AMBULATING PATIENT WITH WALKER.
[2018-12-03] MEDS: PANTOPRAZOLE 40 MG TAB PO SCH (10:36)
[2018-12-03] MEDS: ASPirin 81 mg TAB PO SCH (10:36)
[2018-12-03] MEDS: APIXABAN 2.5 MG TAB PO SCH ×2 (10:37→22:18)
[2018-12-03] MEDS: amLODIPine BESYLATE 5 MG TAB PO SCH ×2 (10:39→22:18)
[2018-12-03] MEDS: LOSARTAN POTASSIUM 50 MG TAB PO SCH (10:39)
[2018-12-03] MEDS: METOPROLOL SUCCINATE XL 50 MG TAB PO SCH (10:40)
--- NOTE | 2018-12-03 12:49 | NUR ---
Briana STEWART AT BEDSIDE.
--- NOTE | 2018-12-03 12:50 | NUR ---
Nutrition Consult and Follow-up Notes Wt.: 43.5 kg as of yesterday Pt's sitting up on bedside chair, PT at bedside, denies any discomfort during rounds this morning. Per pt, she's lactose intolerant, however tolerating her oral nutrition supplements of Glucerna Shakes (coordinate with dietary). Pt's currently on Pureed Consistent Carb diet with Glucerna Shakes 1 carton BID, with fair PO intake aeb 70% ave. consumed meals (x5) in last 2.5 days. Pt's requesting assistance during meals d/t left side weakness r/t CVA. Acknowledged pt's request, endorsed to nursing. Encouraged to increase food intake throughs small frequent meals as tolerated and reinforced nutrition educ. re: current therapeutic diet and she verbalized understanding. Est. Needs based on IBW 45 [id number] kcal (25-30 kcal/kg), 45-54 g protein (1.0-1.2 g/kg) Labs: Pertinent labs today wnl except for Gluc 125 H, Alb 3.3 L Skin: Lyle scale 21, low risk, skin intact per yard crane operator. GI: Pt had 1 BM 12/01/18 per yard crane operator. PES: Increased nutrient needs r/t current/chronic medical/nutritional status aeb 72% IBW, BMI 14.1 kg/m2, cachectic, reported wt loss, on ONS. Altered nutrition related lab values r/t current/chronic medical condition aeb elev BUN mild hypoalb hyperglycemia Will continue to monitor PO intake, skin status, pertinent labs and weight trend. F/u in 3 to 5 days. Rec.: 1.) Continue close supervision and feeding assistance during meals. 2.) Consider to continue other pertinent labs prn; If Albumin continues trending down, consider Prostat 1 pkt BID. 3.) Refer pt to CDE/RD for further nutrition education and weight monitoring upon discharge. 4.) Continue current plan of care. Thank you for this consult.
[2018-12-03 13:00] VITALS: BP 134/61
[2018-12-03 17:00] VITALS: BP 112/43
--- NOTE | 2018-12-03 19:00 | NUR ---
ENDORSED CARE TO DIONICIO HOUSEPATIENT IN NO S/S OF DISTRESS. FALL PRECAUTIONS IN PLACE PER HOSPITAL PROTOCOL. Addendum: 12/03/18 at 1934 by HUSEYIN QUACH RN RN DISREGARD RN. ENDORSED CARE TO DIONICIO MARAVILLA.
[2018-12-03 21:00] VITALS: BP 126/61
[2018-12-04] MEDS: ACCU-CHEK COMFORT CURVE STRIP VI SCH ×5 (00:25→23:21)
[2018-12-04] MEDS: InsuLIN REG 1unit/0.01ml Soln (100units/ml) SC SCH ×5 (00:25→23:37)
[2018-12-04 04:50] VITALS: BP 123/58
[2018-12-04] MEDS: hydrALAZINE HCL 25 MG TAB PO SCH ×3 (06:30→21:41)
[2018-12-04] MEDS: Glucerna Carbsteady SHAKE Stawberry 8oz PO SCH ×2 (08:00→18:04)
--- NOTE | 2018-12-04 08:00 | NUR ---
Opening Shift Note Assumed care of patient, awake and alert. No S/S of distress/SOB or pain. On fall precaution because of left sided body weakness. With dosimetrist at the bedside. Instructed on POC and to call for assist PRN, will continue to monitor for changes Q1hr and PRN.
[2018-12-04 09:00] VITALS: BP 122/55
--- NOTE | 2018-12-04 09:30 | NUR ---
PT at bedside, range of motion exercises done. Patient tolerated walking on the hallway maximum assist with use of a walker.
[2018-12-04] MEDS: METOPROLOL SUCCINATE XL 50 MG TAB PO SCH (10:00)
[2018-12-04] MEDS: LOSARTAN POTASSIUM 50 MG TAB PO SCH (10:03)
[2018-12-04] MEDS: PANTOPRAZOLE 40 MG TAB PO SCH (10:03)
[2018-12-04] MEDS: amLODIPine BESYLATE 5 MG TAB PO SCH ×2 (10:03→21:41)
[2018-12-04] MEDS: ASPirin 81 mg TAB PO SCH (10:03)
[2018-12-04] MEDS: APIXABAN 2.5 MG TAB PO SCH ×2 (10:03→21:41)
--- NOTE | 2018-12-04 12:00 | NUR ---
Patient able to swallow soft diet on small frequent feedings with moderate to maximum assist. Placed on strict aspiration precaution. Will continue to monitor.
[2018-12-04 13:00] VITALS: BP 109/52
--- NOTE | 2018-12-04 14:00 | NUR ---
Hydralazine PO held at this time for BP-109/52.
[2018-12-04 17:00] VITALS: BP 116/50
[2018-12-04 22:00] VITALS: BP 123/41
[2018-12-05] MEDS: hydrALAZINE HCL 25 MG TAB PO SCH ×3 (05:48→21:16)
[2018-12-05] MEDS: ACCU-CHEK COMFORT CURVE STRIP VI SCH ×4 (05:48→23:00)
[2018-12-05 05:49] VITALS: BP 115/61
[2018-12-05] MEDS: InsuLIN REG 1unit/0.01ml Soln (100units/ml) SC SCH ×4 (05:58→23:01)
[2018-12-05] MEDS: Glucerna Carbsteady SHAKE Stawberry 8oz PO SCH ×2 (08:00→18:19)
--- NOTE | 2018-12-05 08:00 | NUR ---
Opening Shift Note Assumed care of patient, awake and alert. With left sided weakness and slurred speech secondary to stroke. No S/S of distress/SOB or pain. guard lieutenant at bedside. Instructed on POC and to call for assist PRN, will continue to monitor for changes Q1hr and PRN.
[2018-12-05 09:00] VITALS: BP 118/52
[2018-12-05] MEDS: LOSARTAN POTASSIUM 50 MG TAB PO SCH (10:20)
[2018-12-05] MEDS: PANTOPRAZOLE 40 MG TAB PO SCH (10:20)
[2018-12-05] MEDS: amLODIPine BESYLATE 5 MG TAB PO SCH ×2 (10:21→21:16)
[2018-12-05] MEDS: APIXABAN 2.5 MG TAB PO SCH ×2 (10:21→23:00)
[2018-12-05] MEDS: METOPROLOL SUCCINATE XL 50 MG TAB PO SCH (10:21)
[2018-12-05] MEDS: ASPirin 81 mg TAB PO SCH (11:03)
[2018-12-05 14:00] VITALS: BP 113/47
--- NOTE | 2018-12-05 15:30 | NUR ---
IV removal IV on the right forearm infiltrated. IV DC'd with clean sterile technique, catheter fully intact. Pressure dressing applied to site. Patient tolerated well.
[2018-12-05 17:00] VITALS: BP 87/45
[2018-12-05 17:54] VITALS: BP 102/45
--- NOTE | 2018-12-05 20:08 | NUR ---
Opening Shift Note Assumed care of patient, awake and alert. No S/S of distress/SOB or pain. Patient with left sided weakness, on strict aspiration precautions. Instructed on POC and to call for assist PRN, will continue to monitor for changes Q1hr and PRN.
[2018-12-05 21:35] VITALS: BP 103/34
[2018-12-06 04:40] VITALS: BP 119/50
[2018-12-06] MEDS: hydrALAZINE HCL 25 MG TAB PO SCH ×3 (06:00→21:37)
[2018-12-06] MEDS: InsuLIN REG 1unit/0.01ml Soln (100units/ml) SC SCH ×3 (06:00→17:12)
[2018-12-06] MEDS: ACCU-CHEK COMFORT CURVE STRIP VI SCH ×3 (06:14→17:12)
[2018-12-06] MEDS: Glucerna Carbsteady SHAKE Stawberry 8oz PO SCH ×2 (08:00→18:03)
--- NOTE | 2018-12-06 08:00 | NUR ---
Opening Shift Note Assumed care of patient, awake and alert. No S/S of distress/SOB or pain. Fall risk precaution for left sided weakness. Instructed on POC and to call for assist PRN, will continue to monitor for changes Q1hr and PRN.
[2018-12-06 08:23] VITALS: BP 123/45
[2018-12-06] MEDS: amLODIPine BESYLATE 5 MG TAB PO SCH ×2 (09:28→21:37)
[2018-12-06] MEDS: PANTOPRAZOLE 40 MG TAB PO SCH (09:28)
[2018-12-06] MEDS: APIXABAN 2.5 MG TAB PO SCH ×2 (09:29→21:37)
[2018-12-06] MEDS: ASPirin 81 mg TAB PO SCH (09:29)
[2018-12-06] MEDS: LOSARTAN POTASSIUM 50 MG TAB PO SCH (10:00)
[2018-12-06] MEDS: METOPROLOL SUCCINATE XL 50 MG TAB PO SCH (10:00)
--- NOTE | 2018-12-06 11:41 | NUR ---
Nutrition Follow-up Notes Wt.: 31.3 kg Pt's sleeping with no family but guards by bedside. Pt's currently on Soft Consistent Carb diet with Glucerna Shakes 1 carton BID, with inadequate PO of < 505 x 6 per RN doc. per records pt with hemiplegia Est. Needs based on IBW 45 [id number] kcal (25-30 kcal/kg), 45-54 g protein (1.0-1.2 g/kg) Labs: No new labs today 12/03: GLU 125 H, ALB 3.3 L. Skin: Lyle scale 20, low risk, skin intact per road consultant. GI: Pt had 1 BM 12/01/[address] PES: Increased nutrient needs r/t current/chronic medical/nutritional status aeb 72% IBW, BMI 14.1 kg/m2, cachectic, reported wt loss, on ONS. Altered nutrition related lab values r/t current/chronic medical condition aeb elev BUN mild hypoalb hyperglycemia Will continue to monitor PO intake, skin status, pertinent labs and weight trend. F/u in 3 to 5 days. Rec.: 1.) Continue close supervision and feeding assistance during meals. 2.) Consider to continue other pertinent labs prn; If Albumin continues trending down, consider Prostat 1 pkt BID. 3.) Refer pt to CDE/RD for further nutrition education and weight monitoring upon discharge. 4.) Continue current plan of care.
[2018-12-06 13:00] VITALS: BP 108/47
[2018-12-06 16:45] VITALS: BP 103/61
--- NOTE | 2018-12-06 20:00 | NUR ---
RECEIVE IN BED GUARD AT BEDSIDE NO VOICED OMPLAINTS
[2018-12-06 22:00] VITALS: BP 135/69
[2018-12-07] MEDS: ACCU-CHEK COMFORT CURVE STRIP VI SCH ×4 (00:01→17:40)
[2018-12-07] MEDS: InsuLIN REG 1unit/0.01ml Soln (100units/ml) SC SCH ×4 (00:02→17:40)
[2018-12-07 05:00] VITALS: BP 145/59
[2018-12-07] MEDS: hydrALAZINE HCL 25 MG TAB PO SCH ×3 (05:44→21:35)
[2018-12-07] MEDS: Glucerna Carbsteady SHAKE Stawberry 8oz PO SCH ×2 (08:00→18:06)
--- NOTE | 2018-12-07 08:00 | NUR ---
Opening Shift Note Assumed care of patient, awake and alert. No S/S of distress/SOB or pain. With left side weakness still, patient able to lift left arm slowly without assistance. Speech is less slurred. Maintained on fall risk. molded rubber goods cutter at bedside. Instructed on POC and to call for assist PRN, will continue to monitor for changes Q1hr and PRN.
[2018-12-07 09:00] VITALS: BP 139/59
[2018-12-07] MEDS: ASPirin 81 mg TAB PO SCH (09:47)
[2018-12-07] MEDS: LOSARTAN POTASSIUM 50 MG TAB PO SCH (09:47)
[2018-12-07] MEDS: PANTOPRAZOLE 40 MG TAB PO SCH (09:48)
[2018-12-07] MEDS: amLODIPine BESYLATE 5 MG TAB PO SCH ×2 (09:48→21:37)
[2018-12-07] MEDS: APIXABAN 2.5 MG TAB PO SCH ×2 (09:48→21:36)
[2018-12-07] MEDS: METOPROLOL SUCCINATE XL 50 MG TAB PO SCH ×2 (10:00→14:02)
[2018-12-07 13:00] VITALS: BP 130/52
[2018-12-07 18:02] VITALS: BP 110/42
--- NOTE | 2018-12-07 20:14 | NUR ---
RECEIVE IN BED WITH GUARD AT BEDSIDE SKIN WARM AND DRY TO TOUCH WITH LT SIDE WEAKNESS BUT IS ABLE TO DO FOREARM EXERCISE WANTS TO SIT UP IN CHAIR AT 2100
[2018-12-07 22:00] VITALS: BP 129/77
[2018-12-08] MEDS: InsuLIN REG 1unit/0.01ml Soln (100units/ml) SC SCH ×5 (00:03→23:55)
[2018-12-08] MEDS: ACCU-CHEK COMFORT CURVE STRIP VI SCH ×5 (00:03→23:56)
[2018-12-08 05:00] VITALS: BP 108/53
[2018-12-08] MEDS: hydrALAZINE HCL 25 MG TAB PO SCH ×3 (05:45→21:25)
[2018-12-08] MEDS: Glucerna Carbsteady SHAKE Stawberry 8oz PO SCH ×2 (08:27→18:00)
[2018-12-08 09:20] VITALS: BP 150/67
--- NOTE | 2018-12-08 09:24 | NUR ---
0called by staff, patient fell from the [facility] commode, fall witnessed by LETI Lam. Per BUSINESS OBJECTS patient was assisted to BS, per BUSINESS OBJECTS patient tried to pull bottom of her gown that's caught from sitting on commode and lost balance and fell forward, per BUSINESS OBJECTS unable to catch the fall, redness and pain on left face noted. Dr Bowens paged, waiting for call back.
[2018-12-08] MEDS: APIXABAN 2.5 MG TAB PO SCH ×2 (10:00→21:24)
[2018-12-08] MEDS: PANTOPRAZOLE 40 MG TAB PO SCH (10:11)
[2018-12-08] MEDS: ASPirin 81 mg TAB PO SCH (10:11)
[2018-12-08] MEDS: amLODIPine BESYLATE 5 MG TAB PO SCH ×2 (10:12→21:25)
[2018-12-08] MEDS: METOPROLOL SUCCINATE XL 50 MG TAB PO SCH (10:13)
[2018-12-08] MEDS: LOSARTAN POTASSIUM 50 MG TAB PO SCH (10:14)
--- NOTE | 2018-12-08 10:45 | NUR ---
another call placed for Dr Bowens, awaiting call back.
[2018-12-08 11:30] VITALS: BP 112/47
--- NOTE | 2018-12-08 12:56 | NUR ---
call Dr Bowens, office close for lunch.
[2018-12-08 13:53] VITALS: BP 104/43
--- NOTE | 2018-12-08 13:58 | NUR ---
called Dr Bowens office, informed his clinical secretary that he has not called back, per his clinical secretary will give the message. patient is stable, sitting on chair, refused to get back to bed yet. call light within reach, educated on NOT to get up without help. [facility] guard at bedside.
--- NOTE | 2018-12-08 16:05 | NUR ---
Dr Bowens has not called back. Patient stable.
[2018-12-08 16:23] VITALS: BP 110/56
--- NOTE | 2018-12-08 18:34 | NUR ---
DR STEWART HERE, SEEN AND EXAMINED PATIENT, ASKED HIM ABOUT ELOQUIST, PER DR STEWART OK TO CONTINUE.
--- NOTE | 2018-12-08 19:35 | NUR ---
Opening Shift Note Assumed care of patient. Patient was asleep upon entering room but easily arousible. No S/S of distress/SOB or pain. Instructed on POC and to call for assist PRN, will continue to monitor for changes Q1hr and PRN.
[2018-12-08 22:00] VITALS: BP 121/51
--- NOTE | 2018-12-09 01:45 | NUR ---
Received call from Radiologist Dr. Villaseñor, who states that the patient has a right frontal posterior hemorrhage. A page to Dr. Bowens has been placed.
--- NOTE | 2018-12-09 01:58 | NUR ---
Telephone order received from Dr. Bowens for a CT head with no contrast and discontinuation of the patient's Eliquis.
--- NOTE | 2018-12-09 03:20 | NUR ---
Patient has been taken to radiology for CT scan of the head.
--- NOTE | 2018-12-09 03:35 | NUR ---
Patient has returned from radiology.
[2018-12-09 05:44] VITALS: BP 152/57
--- NOTE | 2018-12-09 05:56 | NUR ---
Read back the CT head results to Dr. Herman. No new orders. States that he will be in to see the patient. Will continue to monitor the patient's status.
[2018-12-09] MEDS: hydrALAZINE HCL 25 MG TAB PO SCH ×3 (06:00→22:00)
[2018-12-09] MEDS: InsuLIN REG 1unit/0.01ml Soln (100units/ml) SC SCH ×3 (06:05→17:35)
[2018-12-09] MEDS: ACCU-CHEK COMFORT CURVE STRIP VI SCH ×3 (06:05→17:35)
[2018-12-09] MEDS: Glucerna Carbsteady SHAKE Stawberry 8oz PO SCH ×2 (08:00→22:11)
[2018-12-09 08:05] VITALS: BP 166/66
--- NOTE | 2018-12-09 08:41 | NUR ---
DR STEWART HERE, VERBALLY SAID PATIENT WILL BE TRANSFERRED TO HIGHER LEVEL OF CARE DUE TO SMALL INTRACRANIAL BLEED, LORY EGAN CHARGE NURSE UPDATED.
[2018-12-09 09:00] VITALS: BP 162/66
--- NOTE | 2018-12-09 10:05 | NUR ---
Transfer: Spoke to Hung at [facility] and Maren at [facility] and stated pt has a new brain bleed and needs to be transferred, they have not received paper work as of yet that I faxed. They will call me when they receive paperwork
[2018-12-09] MEDS ORDERED: GADOTERIDOL 279.3mg/mL 20ml Vial IV ONE (10:20)
[2018-12-09] MEDS: PANTOPRAZOLE 40 MG TAB PO SCH (10:56)
[2018-12-09] MEDS: ASPirin 81 mg TAB PO SCH (10:56)
[2018-12-09] MEDS: amLODIPine BESYLATE 5 MG TAB PO SCH ×2 (10:57→22:00)
[2018-12-09] MEDS: METOPROLOL SUCCINATE XL 50 MG TAB PO SCH (10:57)
[2018-12-09] MEDS: LOSARTAN POTASSIUM 50 MG TAB PO SCH (10:58)
[2018-12-09 13:00] VITALS: BP 124/53
--- NOTE | 2018-12-09 14:59 | NUR ---
BACK TO ROOM, BRAIN MRI COMPLETED.
--- NOTE | 2018-12-09 15:09 | NUR ---
CALLED DEVONTE SUERO: UPDATE ON TRANSFER STATUS. NO ANSWER, VOICE MESSAGE LEFT.
--- NOTE | 2018-12-09 16:14 | NUR ---
Transfer called [facility] ([phone]) and they have no beds but will check in 4 hrs, they are to call [place] with up dates of bed availability . I faxed new brain MRI to [facility] and spoke to [place] and right now they do not have any beds. [facility] is on will call
--- NOTE | 2018-12-09 16:17 | NUR ---
[facility] ph [phone]
[2018-12-09 17:00] VITALS: BP 118/64
--- NOTE | 2018-12-09 19:20 | NUR ---
Opening Shift Note Assumed care of patient, awake and alert. No S/S of distress/SOB or pain. Instructed on POC and to call for assist PRN, will continue to monitor for changes Q1hr and PRN.
--- NOTE | 2018-12-09 20:52 | NUR ---
Lilibeth from the [facility] called stating that there are no beds currently available at this time. She states that she will call back in 4 hours for another update.
[2018-12-09 21:38] VITALS: BP 113/43
--- NOTE | 2018-12-09 23:26 | NUR ---
Popeye from [facility] called to state that they are still working on getting a room for the patient. She states that a sales development representative will call in the morning for further updates.
[2018-12-10] MEDS: ACCU-CHEK COMFORT CURVE STRIP VI SCH ×4 (00:10→17:22)
[2018-12-10] MEDS: InsuLIN REG 1unit/0.01ml Soln (100units/ml) SC SCH ×4 (00:10→17:23)
[2018-12-10 04:51] VITALS: BP 134/58
[2018-12-10] MEDS: hydrALAZINE HCL 25 MG TAB PO SCH ×3 (05:53→22:00)
--- NOTE | 2018-12-10 07:40 | NUR ---
TRANSFERRED TO CHAIR WITH MAXIMUM ASSIST, PATIENT VERBALIZED FEELING BETTER TODAY. WITH STRONG RIGHT HAND HOT TAR ROOFER HELPER, LEFT HAND UNABLE TO HOT TAR ROOFER HELPER BUT ABLE TO MOVE. ABLE TO PERFORM ACTIVE RANGE OF MOTION ON ALL EXTREMITIES, EMPHASIZED ON LEFT HAND , FINGERS EXERCISE, PATIENT VERBALIZED UNDERSTANDING. INFORMED HER THAT WE ARE STILL WAITING FOR BED AVAILABILITY.
[2018-12-10] MEDS: Glucerna Carbsteady SHAKE Stawberry 8oz PO SCH (08:15)
--- NOTE | 2018-12-10 08:43 | NUR ---
Transfer: I called [facility] and spoke to Tasia box RN they are still waiting for neurosurgery to respond to them and [facility] is waiting for response from [facility] for financials. I called ZACHERY Patino for [facility], and gave her field contact technician Ninoska ) in business dept at [facility] so she can speed up process.
[2018-12-10 09:00] VITALS: BP 115/40
--- NOTE | 2018-12-10 09:17 | NUR ---
Transfer: Carey at [facility] called and gave auth fot [facility] ([id number]) and informed me her contract office is contacting [facility] mark office to work out financials. I called [facility] and spoke to Carey and gave her the auth # for [facility].
--- NOTE | 2018-12-10 09:20 | NUR ---
call received from [facility], no available bed today.
--- NOTE | 2018-12-10 09:44 | NUR ---
Transfer: Tasia from [facility] called and stated they have an accepting MD of Aaron Olson. They are still waiting for financials getting worked out and are looking for bed for this pt
[2018-12-10] MEDS: PANTOPRAZOLE 40 MG TAB PO SCH (10:15)
[2018-12-10] MEDS: ASPirin 81 mg TAB PO SCH (10:16)
[2018-12-10] MEDS: amLODIPine BESYLATE 5 MG TAB PO SCH ×3 (10:17→23:00)
[2018-12-10] MEDS: METOPROLOL SUCCINATE XL 50 MG TAB PO SCH (10:19)
[2018-12-10] MEDS: LOSARTAN POTASSIUM 50 MG TAB PO SCH (10:22)
[2018-12-10 13:00] VITALS: BP 113/52
--- NOTE | 2018-12-10 13:30 | NUR ---
PATIENT CAME TO VISIT, FRANKLYN CALLED THEIR TILE AND MARBLE INSTALLER, FRANKLYN WENT DOWN TO LOBBY TO INFORM GAS PUMPING STATION OPERATOR ABOUT INMATE VISITATION STATUS. KIM CHARGE NURSE IN MEETING, WILL INFORM ONCE AVAILABLE. Addendum: 12/10/18 at 1816 by ADOLFO KHOURY RN RN PATIENT SON
--- NOTE | 2018-12-10 14:30 | NUR ---
Nutrition Follow-up Notes Wt.: 30.5 kg as of yesterday. Pt's asleep, deputies at bedside, no signs of distress noted earlier, currently on Soft diet with Glucerna Shakes 1 carton BID, has fair PO intake aeb 60% ave. consumed meals (x6) in last 2.3 days. Noted pt's for possible transfer to a higher level of care. Est. Needs based on IBW 45 [id number] kcal (25-30 kcal/kg), 45-54 g protein (1.0-1.2 g/kg) Labs: No new labs since 12/03/18 except for POC Gluc 197 H Skin: Lyle scale 20, low risk, skin intact per banquet server on call. GI: Pt had 1 BM 12/07/18 per banquet server on call. PES: Increased nutrient needs r/t current/chronic medical/nutritional status aeb 72% IBW, BMI 14.1 kg/m2, cachectic, reported wt loss, on ONS. Altered nutrition related lab values r/t current/chronic medical condition aeb elev BUN mild hypoalb hyperglycemia Will continue to monitor PO intake, skin status, pertinent labs and weight trend. F/u in 3 to 5 days. Rec.: 1.) Consider to resume Soft Consistent Low Carb: 45 gms/meal diet. 2.) Continue close supervision and feeding assistance during meals. 3.) Consider to continue other pertinent labs prn; If Albumin continues trending down, consider Prostat 1 pkt BID. 4.) Refer pt to CDE/RD for further nutrition education and weight monitoring upon discharge. 5.) Continue current plan of care.
--- NOTE | 2018-12-10 16:08 | NUR ---
auth for [facility] is [id number]
[2018-12-10 17:00] VITALS: BP 127/61
--- NOTE | 2018-12-10 19:30 | NUR ---
Opening Shift Note Assumed care of patient. Patient is awake and alert with guard at bedside. No S/S of distress/SOB or pain. Instructed on POC and to call for assist PRN, will continue to monitor for changes. Bed locked in lowest position and bed rails up x2. Call light within reach.
--- NOTE | 2018-12-10 19:45 | NUR ---
1905 RECEIVED CALL FROM [facility], PER FIORELLA RN IN CHARGE OF TRANSFER , PATIENT WILL BE GOING INTO UNIT 9100, ALL MEDICAL RECORDS NEEDED. ENDORSED TO SPOT CHECKER.
[2018-12-10 22:00] VITALS: BP 100/41
--- NOTE | 2018-12-10 22:45 | NUR ---
[facility] at bedside
--- NOTE | 2018-12-10 23:00 | NUR ---
Held B/P medications. B/P slightly low reading at 100/41
--- NOTE | 2018-12-10 23:30 | NUR ---
Called Madi Rivera to give report to DIONICIO Yates. Receiving physician: Michele Ko
--- NOTE | 2018-12-11 00:30 | NUR ---
[facility] arrived to sisal picker patient for transport
== END 2018-12-11 00:30 | disposition short-term general hospital (02) | DRG 64 ==
LOC: TELE-EAST 21:00 → EAST 12-02 13:20
PROVIDERS: ADMIT Internal Medicine; ATTEND Internal Medicine
PROC: B24BZZ4 Ultrasonography of Heart with Aorta, Transesophageal (ICD-10-PCS; principal; 2018-11-25)
DX: I63.9 Cerebral infarction, unspecified (principal); I61.1 Nontraumatic intracerebral hemorrhage in hemisphere, cortical; G81.94 Hemiplegia, unspecified affecting left nondominant side; E85.4 Organ-limited amyloidosis; I48.0 Paroxysmal atrial fibrillation; E11.9 Type 2 diabetes mellitus without complications; R79.89 Other specified abnormal findings of blood chemistry; R47.1 Dysarthria and anarthria; I34.0 Nonrheumatic mitral (valve) insufficiency; I11.9 Hypertensive heart disease without heart failure; E78.5 Hyperlipidemia, unspecified; I68.0 Cerebral amyloid angiopathy; R13.10 Dysphagia, unspecified; R29.810 Facial weakness; Z79.899 Other long term (current) drug therapy; Z83.3 Family history of diabetes mellitus; Z82.49 Family history of ischemic heart disease and other diseases of the circulatory system
CPT/HCPCS: 36415; 70450; 70486; 70553; 71045; 80048; 80053; 80202; 82962; 84484; 85025; 85610; 85730; 86850; 86900; 86901; 87040; 87081; 92507; 92610; 93005; 93306; 93312; 93886; 97110; 97116; 97163; 97530; 99152; G0378; J1815; J2250; J7042; J7060

== ENCOUNTER 2018-12-12 18:10 | Inpatient (IN) | payer OTHER ==
[~2018-12-12] VITALS: Ht 152.4 cm; Wt 37.6 kg
--- NOTE | 2018-12-12 15:10 | NUR ---
REPORT RECEIVED SBAR FROM DIONICIO BAILON, AT [facility] . ALL QUESTIONS/CONCERNS ANSWERED. ADAMARIS STATED, "[facility] PICKED UP PATIENT FOR TRANSPORT AT APPROXIMATELY 1620."
[~2018-12-12 18:10] MED LIST: CALC-337 OR; HYDR10TA26 PO; ISOS20TA56 PO; LOSA-39 PO; METF500S PO; OXYB5SYP4 PO
--- NOTE | 2018-12-12 18:15 | NUR ---
Direct Admit Note ARMIN AGUILA admitted to [facility] unit as a direct admit per MD order from [facility]. Patient oriented to SHARON MACHADO,RN primary RN, unit, room, bed, and unit policies regarding patient. Patient weighed by bedscale and encouraged to call if they need something with call light within reach. Bed in low/locked position, bed rails up x2. Guard at bedside. All questions and concerns addressed, patient verbalized understanding. No s/s of SOB, distress, or pain. Will continue to monitor q1h and PRN.
--- NOTE | 2018-12-12 18:47 | NUR ---
PRADIP STEWART TO NOTIFY OF PATIENT ARRIVAL AND TO RECEIVE ORDERS. LEFT MESSAGE WITH BUSINESS DEVELOPER. AWAITING RETURN PHONE CALL.
--- NOTE | 2018-12-12 18:56 | NUR ---
MD CALL DR STEWART RETURNED PHONE CALL RE: PATIENT ADMISSION. NEW ORDERS RECEIVED/CARRIED OUT
--- NOTE | 2018-12-12 19:05 | NUR ---
Opening Shift Note Assumed care of patient, awake and alert. No S/S of distress/SOB or pain. Safety measures in place bed in lowest position, side rails x 2 up, and call light within reach. Instructed on POC and to call for assist PRN, will continue to monitor for changes Q1hr and PRN.
--- NOTE | 2018-12-12 20:00 | NUR ---
Received a call from pharmacy pertaining medication orders. Paged hospitalist for verification of orders and will update.
[2018-12-12 20:39] VITALS: BP 130/65
--- NOTE | 2018-12-12 20:48 | NUR ---
Received call from Dr. Bowens orders received.
[2018-12-12] MEDS: ISOSORBIDE DINITRATE 10 MG TAB PO SCH (22:30)
[2018-12-12] MEDS: OXYBUTYNIN CHL 5 MG TAB PO SCH (22:30)
[2018-12-12] MEDS: hydrALAZINE HCL 25 MG TAB PO SCH (22:30)
[2018-12-13] VITALS (7 sets, daily range): BP systolic 99–128; BP diastolic 39–62
[2018-12-13] MEDS: hydrALAZINE HCL 25 MG TAB PO SCH ×3 (06:00→22:00)
--- NOTE | 2018-12-13 08:00 | NUR ---
ASSESSMENT NOTE PATIENT IS ALERT ORIENTED X4, RESTING IN BED COMFORTABLE, ABLE TO VERBALIS HER NEEDS SELF REPOSITION, PATIENT SPEECH IS MOSTLY CLEAR, LEFT FACIAL DROOPING, LEFT ARM CONTRACTED ACROSS HER SIDE, IS STIFF AND SPRIGHT DOWN, HEAD OF BED ELEVATED FOR ASPIRATION PRECAUTIONS, CALL LIGHT WITHIN REACH, ON FALL RISK PRECAUTIONS AT ALL TIMES, A FEMALE GUARD AT BED SIDE
--- NOTE | 2018-12-13 08:30 | NUR ---
BREAKFAST ASSISTED PT TO GET OUT OF BED WITH A MAX ASSIST TO SIT ON CHAIR AT BED SIDE
--- NOTE | 2018-12-13 08:45 | NUR ---
PATIENT WAS ABLE TO FEED HER SELF, ASSISTED NEEDED
[2018-12-13] MEDS: metFORMIN HYDROCHLORIDE 500 MG TAB PO SCH ×2 (09:39→18:17)
[2018-12-13] MEDS: CALCIUM W/VIT D (600MG/400IU) TAB PO SCH (09:39)
[2018-12-13] MEDS: ISOSORBIDE DINITRATE 10 MG TAB PO SCH ×2 (09:40→22:00)
[2018-12-13] MEDS: ASPirin-EC 81 mg tab PO SCH (09:40)
[2018-12-13] MEDS: LOSARTAN POTASSIUM 50 MG TAB PO SCH (10:00)
--- NOTE | 2018-12-13 10:30 | NUR ---
ASSITED TO GET OUT OF CHAIR AND USE BED SIDE COMMODE
--- NOTE | 2018-12-13 10:44 | NUR ---
BM PT HAS LARGE SOFT BM, KEPT CLEAN AND DRY
--- NOTE | 2018-12-13 10:45 | NUR ---
PATIENT ASSISTED BACK TO BED, KEPT DRY AND CLEAN AT ALL TIMES
--- NOTE | 2018-12-13 11:00 | NUR ---
DR STEWART IS HERE MADE AWARE OF PT
--- NOTE | 2018-12-13 17:40 | NUR ---
BM PT ASSISTED TO HAVE BM FOR THE SECOND TIME 2 BRIGHT BLOOD DROPS NOTED OVER THE BM, CONTINUE MONITORING PT, STABLE, NO DISTRESS NOTED, KEPT CLEAN AND DRY, ASSISTED TO GO BACK TO BED, PATIENT'S GUARD AWARE AT BED SIDE
[2018-12-13] MEDS: Glucerna Carbsteady SHAKE Vanilla 8oz PO SCH (18:17)
--- NOTE | 2018-12-13 18:17 | NUR ---
PT IS SITTING DOWN ON CHAIR AT BED SIDE EATING DINNER
--- NOTE | 2018-12-13 18:33 | NUR ---
PT CONTINUE STABLE, CONTINUE MONITORING
[2018-12-13] MEDS: OXYBUTYNIN CHL 5 MG TAB PO SCH (22:09)
--- NOTE | 2018-12-13 22:09 | NUR ---
Mediation held Held patient's Hydralazine and Isordil. Patient's BP 127/57. Will continue to monitor.
[2018-12-14 05:00] VITALS: BP 124/43
[2018-12-14] MEDS: hydrALAZINE HCL 25 MG TAB PO SCH ×3 (05:54→22:58)
[2018-12-14 06:03] LABS: Basophils # (auto) 0 uL; Basophils % (auto) 0.4 % (0.0-2.0); Eosinophils # (auto) 0.2 uL; Eosinophils % (auto) 4.8 % (0.0-7.0); Hemoglobin 11.2 g/dL (12.2-16.2); Lymphocytes # (auto) 0.8 uL; Lymphocytes % (auto) 21.4 % (10.0-50.0); Mean Corpuscular Hemoglobin 31.8 pg (28.0-32.0); Mean Corpuscular Hgb Conc. 32.9 g/dL (32.0-36.0); Mean Corpuscular Volume 96.6 fL (80.0-100.0); Monocytes # (auto) 0.4 uL; Neutrophils # (auto) 2.4 uL; Neutrophils % (auto) 62.4 % (37.0-80.0); Platelet Count (auto) 248 10^3/uL (140-450); Red Blood Cells 3.52 10^6/uL (4.0-5.20); Red Cell Distribution Width 14.4 % (11.8-14.3); White Blood Cell 3.8 10^3/uL (4.4-10.8)
[2018-12-14 06:44] LABS: Potassium 4.3 mmol/L (3.5-5.1)
[2018-12-14 07:07] LABS: Albumin 3.4 g/dL (3.4-5.0); BUN/Creatinine Ratio 20.2; Bilirubin, Total 0.4 mg/dL (0.2-1.0); Calcium 9.4 mg/dL (8.5-10.1); Total Protein 7.4 g/dL (6.4-8.2)
--- NOTE | 2018-12-14 07:30 | NUR ---
Opening Shift Note RECEIVED REPORT FROM NOC RN. Assumed care of patient, awake and alert. No S/S of distress/SOB or pain. BED IN LOWEST, LOCKED POSITION WITH SIDERAILS UP x2 AND CALL LIGHT WITHIN REACH. Instructed on POC and to call for assist PRN, will continue to monitor for changes Q1hr and PRN.
--- NOTE | 2018-12-14 08:00 | NUR ---
IV removal PATIENT ACCIDENTALLY DISLODGED IV. Catheter fully intact. Pressure dressing applied to site. Patient tolerated well.
[2018-12-14] MEDS: Glucerna Carbsteady SHAKE Vanilla 8oz PO SCH ×2 (08:21→17:46)
[2018-12-14] MEDS: metFORMIN HYDROCHLORIDE 500 MG TAB PO SCH ×2 (08:22→17:34)
[2018-12-14 09:11] VITALS: BP 142/61
[2018-12-14] MEDS: CALCIUM W/VIT D (600MG/400IU) TAB PO SCH (10:44)
[2018-12-14] MEDS: ASPirin-EC 81 mg tab PO SCH (10:44)
[2018-12-14] MEDS: LOSARTAN POTASSIUM 50 MG TAB PO SCH (10:45)
[2018-12-14] MEDS: ISOSORBIDE DINITRATE 10 MG TAB PO SCH ×2 (10:45→22:58)
[2018-12-14 12:51] VITALS: BP 99/45
--- NOTE | 2018-12-14 15:29 | NUR ---
IV insertion IV access obtained, via clean sterile technique by inserting 22 gauge catheter at RIGHT FOREARM after 1 attempt. IV secured properly. No trauma to site. Patient tolerated well.
[2018-12-14 16:35] VITALS: BP 110/62
--- NOTE | 2018-12-14 19:00 | NUR ---
Opening Shift Note Assumed care of patient, awake and alert. No S/S of distress/SOB or pain. Safety measures in place side rails x2 up, bed in lowest position, call light within reach. Instructed on POC and to call for assist PRN, will continue to monitor for changes Q1hr and PRN.
[2018-12-14 21:46] VITALS: BP 130/51
[2018-12-14] MEDS: OXYBUTYNIN CHL 5 MG TAB PO SCH (22:58)
[2018-12-15 05:04] VITALS: BP 116/51
[2018-12-15] MEDS: hydrALAZINE HCL 25 MG TAB PO SCH ×3 (05:52→22:00)
--- NOTE | 2018-12-15 07:30 | NUR ---
Opening Shift Note RECEIVED REPORT FROM NOC RN. Assumed care of patient, awake and alert. No S/S of distress/SOB or pain. BED IN LOWEST, LOCKED POSITION WITH SIDERAILS UP x2 AND CALL LIGHT WITHIN REACH AND GUARD AT BEDSIDE. Instructed on POC and to call for assist PRN, will continue to monitor for changes Q1hr and PRN.
[2018-12-15] MEDS: metFORMIN HYDROCHLORIDE 500 MG TAB PO SCH ×2 (08:15→18:05)
[2018-12-15] MEDS: Glucerna Carbsteady SHAKE Vanilla 8oz PO SCH ×2 (08:16→18:05)
[2018-12-15 09:00] VITALS: BP 137/65
[2018-12-15] MEDS: ASPirin-EC 81 mg tab PO SCH (10:02)
[2018-12-15] MEDS: LOSARTAN POTASSIUM 50 MG TAB PO SCH (10:03)
[2018-12-15] MEDS: CALCIUM W/VIT D (600MG/400IU) TAB PO SCH (10:03)
[2018-12-15] MEDS: ISOSORBIDE DINITRATE 10 MG TAB PO SCH ×2 (10:04→23:08)
[2018-12-15 13:00] VITALS: BP 99/46
[2018-12-15 17:00] VITALS: BP 134/56
--- NOTE | 2018-12-15 19:50 | NUR ---
Opening Shift Note Assumed care of patient, awake and alert. No S/S of distress/SOB or pain. Instructed on POC and to call for assist PRN, will continue to monitor for changes Q1hr and PRN. Guard at bedside.
[2018-12-15 20:00] VITALS: BP 109/44
[2018-12-15 21:37] VITALS: BP 109/44
[2018-12-15] MEDS: OXYBUTYNIN CHL 5 MG TAB PO SCH (23:08)
[2018-12-16 04:51] VITALS: BP 122/63
[2018-12-16] MEDS: hydrALAZINE HCL 25 MG TAB PO SCH ×3 (06:00→21:47)
[2018-12-16 08:30] VITALS: BP 126/46
[2018-12-16] MEDS: LOSARTAN POTASSIUM 50 MG TAB PO SCH (10:00)
[2018-12-16] MEDS: Glucerna Carbsteady SHAKE Vanilla 8oz PO SCH ×2 (10:29→18:23)
[2018-12-16] MEDS: ASPirin-EC 81 mg tab PO SCH (10:29)
[2018-12-16] MEDS: metFORMIN HYDROCHLORIDE 500 MG TAB PO SCH ×2 (10:30→18:23)
[2018-12-16] MEDS: CALCIUM W/VIT D (600MG/400IU) TAB PO SCH (10:31)
[2018-12-16] MEDS: ISOSORBIDE DINITRATE 10 MG TAB PO SCH ×2 (10:31→22:00)
--- NOTE | 2018-12-16 11:48 | NUR ---
Nutrition Assessment Notes please see attached ink for complete assessment Est. Needs IBW 45 [id number] kcal (25-30 kcal/kgBW), 45-54 gms pro (1.0-1.2 gms/kgBW). Will continue to monitor pertinent labs and reassess nutrient need prn Addendum: 12/16/18 at [address] Amended: Links added.
[2018-12-16 12:30] VITALS: BP 127/48
[2018-12-16 16:50] VITALS: BP 146/64
--- NOTE | 2018-12-16 19:40 | NUR ---
Opening Shift Note Assumed care of patient, awake and alert. No S/S of distress/SOB or pain. Instructed on POC and to call for assist PRN, will continue to monitor for changes Q1hr and PRN.
[2018-12-16] MEDS: OXYBUTYNIN CHL 5 MG TAB PO SCH (21:47)
[2018-12-16 22:27] VITALS: BP 161/65
[2018-12-17 05:35] VITALS: BP 147/60
[2018-12-17] MEDS: hydrALAZINE HCL 25 MG TAB PO SCH ×3 (05:54→21:38)
[2018-12-17 09:00] VITALS: BP 142/60
[2018-12-17] MEDS: Glucerna Carbsteady SHAKE Vanilla 8oz PO SCH ×2 (10:14→18:22)
[2018-12-17] MEDS: LOSARTAN POTASSIUM 50 MG TAB PO SCH (10:15)
[2018-12-17] MEDS: ASPirin-EC 81 mg tab PO SCH (10:15)
[2018-12-17] MEDS: metFORMIN HYDROCHLORIDE 500 MG TAB PO SCH ×2 (10:15→18:22)
[2018-12-17] MEDS: ISOSORBIDE DINITRATE 10 MG TAB PO SCH ×2 (10:16→21:39)
[2018-12-17] MEDS: CALCIUM W/VIT D (600MG/400IU) TAB PO SCH (10:17)
[2018-12-17] MEDS ORDERED: ASP81EC PO (10:48)
[2018-12-17 13:00] VITALS: BP 125/80
--- NOTE | 2018-12-17 14:27 | NUR ---
SNF await for Dr. Bowens to talk with Dr. Chu to see if pt can be d/c to [facility] and to have SS order written stating that information
--- NOTE | 2018-12-17 16:20 | NUR ---
I called Ike Mccrary at [phone] at [facility] to make sure they are aware that pt has order to transfer to [facility]. I had to leave message and asked him to call me or unit and speak to pt's primary RN if I"m not available
[2018-12-17 17:05] VITALS: BP 143/71
--- NOTE | 2018-12-17 18:14 | NUR ---
PRADIP STEWART RE: TRANSFER. NEED SOCIAL SERVICE CONSULT FOR SNF PLACEMENT IN ORDER TO PROCEED. AWAITING CALL BACK.
--- NOTE | 2018-12-17 20:00 | NUR ---
RECEIVE IN BED WATCHINH TV GUARD AT BEDSIDE
[2018-12-17 21:27] VITALS: BP 144/69
[2018-12-17] MEDS: OXYBUTYNIN CHL 5 MG TAB PO SCH (21:38)
[2018-12-18 05:27] VITALS: BP 149/78
[2018-12-18] MEDS: hydrALAZINE HCL 25 MG TAB PO SCH ×3 (06:08→22:07)
--- NOTE | 2018-12-18 08:05 | NUR ---
SNF called Ike Mccrary with the snf and had to leave message
--- NOTE | 2018-12-18 08:44 | NUR ---
Koby Aragon at [facility] stated they are expecting pt and pt will go to rm [address] and Dr. Lora to follow pt. I have also faxe to [facility] d/c summary cxr, labs, meds at fax# [phone]. I am also trying to contact [facility] to have them arrange transport for pt now
--- NOTE | 2018-12-18 08:57 | NUR ---
SNF spoke to Dr. Tariq at [facility] and he stated he will notify his personnel to arrange transport to [facility]. I have no ETA for pickup
[2018-12-18 09:00] VITALS: BP 131/57
--- NOTE | 2018-12-18 09:08 | NUR ---
Ph # to [facility] is [phone] and ask for medical dept if we need to contact [facility]
[2018-12-18 09:21] VITALS: BP 149/73
[2018-12-18] MEDS: ISOSORBIDE DINITRATE 10 MG TAB PO SCH ×2 (09:47→22:08)
[2018-12-18] MEDS: LOSARTAN POTASSIUM 50 MG TAB PO SCH (09:48)
[2018-12-18] MEDS: CALCIUM W/VIT D (600MG/400IU) TAB PO SCH (09:48)
[2018-12-18] MEDS: ASPirin-EC 81 mg tab PO SCH (09:48)
[2018-12-18] MEDS: metFORMIN HYDROCHLORIDE 500 MG TAB PO SCH ×2 (09:48→18:00)
[2018-12-18] MEDS: Glucerna Carbsteady SHAKE Vanilla 8oz PO SCH ×2 (09:49→18:00)
[2018-12-18 13:03] VITALS: BP 114/43
--- NOTE | 2018-12-18 13:12 | NUR ---
Discharge instructions given as ordered. All questions and concerns addressed. Patient verbalized understanding. IV removed with catheter intact, pressure dressing applied, Medication reconciliation form completed and copy given to patient. Home medications held in Pharmacy returned to patient, and needed vaccines given. . Report given to OSMAN at [facility]. Patient transported by ASSISTED STAFF with all personal belongings. No distress noted at time of departure.
--- NOTE | 2018-12-18 14:28 | NUR ---
SPOKE WITH FROM THE [facility] ACCORDING TO [facility] PERSONNEL THE TRANSPORT WILL BE THERE IN 15 MINUTES WITH GUARD PERSONNEL TO ASSIST. I WILL CONTACT DEVONTE FROM [employer]. Addendum: 12/18/18 at 1709 by BALA WALTER RN RN INCORRECT TIME. CORRECT TIME IS 0364
--- NOTE | 2018-12-18 14:38 | NUR ---
SPOKE WITH MD FROM [facility] REGARDING TRANSFER OF PATIENT. ACCORDING TO THE MD THE PT WILL REQUIRE AMBULANCE TO TRANSFER PT TO FACILITY
--- NOTE | 2018-12-18 16:34 | NUR ---
[facility], primary RN informed me that [facility] found transportation to take pt to [facility]. I cancelled [facility], I will call [facility] and cancel win car
[2018-12-18 16:50] VITALS: BP 122/51
--- NOTE | 2018-12-18 18:47 | NUR ---
PAGED MD STEWART REGARDING TRANSPORTATION FOR 0800 ON 12/19/2018
--- NOTE | 2018-12-18 19:10 | NUR ---
Opening Shift Note and returned page from MD Assumed care of patient, eyes closed, respirations even and unlabored, appears asleep. Patient awakens to name and touch. No S/S of distress/SOB or pain. Bed in lowest locked position, side rails up x2, call light within reach, guard at bedside. Per report from daysncft RN, Dr. Bowens returned page and was made aware of discharge being held and that patient will be picked up in the morning. Instructed on POC and to call for assist PRN, will continue to monitor for changes Q1hr and PRN.
--- NOTE | 2018-12-18 20:00 | NUR ---
Refusing IV Offered to restart IV access for patient, patient refusing at this time. Patient educated on importance of IV access, patient verbalized understanding, refusing again. No s/s of distress. Will continue to monitor.
[2018-12-18 21:00] VITALS: BP 162/65
[2018-12-18] MEDS: OXYBUTYNIN CHL 5 MG TAB PO SCH (22:08)
--- NOTE | 2018-12-19 00:15 | NUR ---
Dr. Shala House at bedside MD at bedside, plan of care discussed. MD made aware of discharge later this morning. Will continue care.
[2018-12-19 04:30] VITALS: BP 120/60
[2018-12-19] MEDS: hydrALAZINE HCL 25 MG TAB PO SCH (05:38)
--- NOTE | 2018-12-19 06:55 | NUR ---
Closing Note Patient lying in bed, awake and alert. No s/s of distress. Bed in lowest locked position, side rails up x2, call light within reach, guard at bedside. Care endorsed to dayshift RN.
[2018-12-19] MEDS: Glucerna Carbsteady SHAKE Vanilla 8oz PO SCH (08:41)
[2018-12-19] MEDS: metFORMIN HYDROCHLORIDE 500 MG TAB PO SCH (08:41)
--- NOTE | 2018-12-19 08:41 | NUR ---
SNF spoke to Lt. Antunez at [email or web address], he stated he would work on getting transportation and pt to [facility]. He did not give me an ETA
[2018-12-19 08:52] VITALS: BP 122/83
--- NOTE | 2018-12-19 09:22 | NUR ---
Opening Note Received report on the patient. Awake lying in bed. Patient shows no signs of distress at this time. Discussed plan of care with the patient. Bed is in the lowest position, side rails up x2, and the call light is within reach. Will continue to monitor.
--- NOTE | 2018-12-19 09:55 | NUR ---
BRENDA; Lt. Antunez left me a message that a van is being dispatched at this time to [facility] to take pt to [facility].
[2018-12-19] MEDS: ASPirin-EC 81 mg tab PO SCH (10:01)
[2018-12-19] MEDS: ISOSORBIDE DINITRATE 10 MG TAB PO SCH (10:02)
[2018-12-19] MEDS: LOSARTAN POTASSIUM 50 MG TAB PO SCH (10:02)
[2018-12-19] MEDS: CALCIUM W/VIT D (600MG/400IU) TAB PO SCH (10:18)
--- NOTE | 2018-12-19 10:45 | NUR ---
Discharge instructions given as ordered. All questions and concerns addressed. Patient verbalized understanding. IV was already removed yesterday 12/18/18. Medication reconciliation form completed and copy given to patient. Report given to Canelo at [facility] yesterday 12/18/18. Patient transported by group home transport. No distress noted at time of departure.
== END 2018-12-19 12:07 | DRG 82 ==
LOC: EAST 18:10
PROVIDERS: ADMIT Internal Medicine; ATTEND Internal Medicine
DX: S06.5X9A Traumatic subdural hemorrhage with loss of consciousness of unspecified duration, initial encounter (principal); I63.9 Cerebral infarction, unspecified; G81.94 Hemiplegia, unspecified affecting left nondominant side; Z68.1 Body mass index [BMI] 19.9 or less, adult; I10 Essential (primary) hypertension; E11.9 Type 2 diabetes mellitus without complications; E78.5 Hyperlipidemia, unspecified; I48.0 Paroxysmal atrial fibrillation; W18.39XA Other fall on same level, initial encounter; E66.01 Morbid (severe) obesity due to excess calories; Z82.49 Family history of ischemic heart disease and other diseases of the circulatory system; Z83.3 Family history of diabetes mellitus; Z79.84 Long term (current) use of oral hypoglycemic drugs; Z79.82 Long term (current) use of aspirin; Y93.89 Activity, other specified; Y92.89 Other specified places as the place of occurrence of the external cause; Y99.8 Other external cause status; Z79.899 Other long term (current) drug therapy
CPT/HCPCS: 36415; 80053; 85025; 87081; 97110; 97116; 97163; 97530; G0378